=== PATIENT | female | born 1940 | race Caucasian/White ===

== ENCOUNTER 2024-07-13 12:36 | Inpatient (IN) | payer MEDICARE, MEDICAID, SELFPAY ==
[2024-07-13] VITALS (9 sets, daily range): BP systolic 134–153; BP diastolic 51–80; PULSE 68–92; RESP 15–21; TEMP 36.9–37.1; O2SAT 95–100
--- NOTE | 2024-07-13 13:04 | XR_ITS ---
Examination: AP lateral chest 2 views Technique: Upright AP lateral chest 2 views Exam date and time: July 13, 2024 1312 hrs. Indications: Coughing congestion this week with shortness of breath Findings: Moderate CHF Moderate enlargement cardiac contour Prominent vascular congestion with perihilar edema Consider superimposed pneumonia left base Impression: Moderate CHF Consider superimposed pneumonia left base
--- NOTE | 2024-07-13 13:15 | PD.EDRME ---
Rapid Medical Screening Exam [facility] Arrival date/time: 07/13/24 12:36 83-year-old female with no known medical history presents to the emergency room with a chief complaint of shortness of breath, phlegm, cough x 1 week. Patient has been seen and treated for pneumonia but patient states her symptoms have not improved and have progressively gotten worse. I have greeted and performed a focused initial assessment of this patient. A comprehensive ED assessment and evaluation of the patient, analysis of all test results, and completion of the medical decision making process will be conducted by additional ED providers. Chief Complaint: Shortness of Breath/Dyspnea Vital signs: Vital Signs Temperature 98.8 F 07/13/24 12:56 Pulse Rate 80 07/13/24 12:56 Respiratory Rate 18 07/13/24 12:56 Blood Pressure 139/71 H 07/13/24 12:56 Pulse Oximetry (%) 99 07/13/24 12:56 Oxygen Delivery Method Nasal Cannula 07/13/24 12:56 Oxygen Flow Rate 4 07/13/24 12:56 Vital signs reviewed by provider: Yes
[2024-07-13] MEDS: DEXAMETHASONE SOD PHOS INJ 10 MG/ML VIAL PO (13:23)
[2024-07-13] MEDS: ALBUTEROL/IPRATROPIUM (Duoneb) RT SOL 3 ML NEBU INH (13:24)
[2024-07-13 13:30] LABS: Basophils % (Auto) 1 % (0-2.5); Eosinophils # (Auto) 0.1 Thou/mm3 (0.0-0.5); Eosinophils % (Auto) 1 % (0-10); Hematocrit 27.1 % (36.0-46.0); Immature Granulocytes % (Auto) 0 % (0-0); Immature Granulocytes Auto 0.03 Thou/mm3 (0.00-0.00); Lymphocytes % (Auto) 11 % (10-50); Mean Corpuscular HGB Conc 26.2 g/dl (31.0-37.0); Mean Corpuscular Hemoglobin 17.4 pg (25.0-35.0); Mean Corpuscular Volume 66 fL (80-100); Monocytes # (Auto) 0.7 Thou/mm3 (0.0-0.8); Monocytes % (Auto) 8 % (0-12); Neutrophils # (Auto) 6.8 Thou/mm3 (1.8-7.7); Neutrophils % (Auto) 79 % (37-80); Nucleated Red Blood Cell % 0 /100 WBC (0); Platelet Count 274 Thou/mm3 (140-440); RDW Standard Deviation 44.3 fL (36.4-46.3); Red Blood Count 4.09 Miln/mm3 (4.00-5.20); White Blood Count 8.5 Thou/mm3 (3.6-11.0)
[2024-07-13 13:40] LABS: Hemoglobin 7.1 g/dL (12.0-16.0)
[2024-07-13 13:57] LABS: Path Review Blood Smear Sent to Pathologist
[2024-07-13 14:13] LABS: Alanine Aminotransferase < 7 U/L (10-49); Albumin/Globulin Ratio 1.5 (1.2-2.2); Alkaline Phosphatase 81 U/L (46-116); Anion Gap 8 (7-16); Aspartate Amino Transferase 10 U/L (0-34); BUN/Creatinine Ratio 20 Ratio (12-20); Bilirubin,Total 0.3 mg/dL (0.3-1.2); Blood Urea Nitrogen 12 mg/dL (9-23); Calcium 9.4 mg/dL (8.3-10.6); Calcium (Corrected) 9.4 mg/dL (8.5-10.1); Carbon Dioxide 36.5 mMol/L (20.0-31.0); Chloride 94 mMol/L (98-107); Creatinine (Component) 0.6 mg/dL (0.6-1.3); Globulin 2.7 gm/dL (2.3-3.5); Glucose 109 mg/dL (74-106); Osmolality,Calculated 276 (275-295); Potassium 4.1 mMol/L (3.4-5.1); Sodium 138 mMol/L (136-145); Total Protein 6.7 gm/dL (5.7-8.2); eGFR > 60 See Note
--- NOTE | 2024-07-13 18:10 | PC.NURSE ---
PT CAME IN SHE WAS DX PNEUMONIA 07/06/2024 STATES SHE DOES NOT FEEL LIKE SHE IS GETTING BETTER, FEEL FATIGUE AND WEAK. INCREASED SOB SINCE HAVING PNEUMONIA. PT CURRENTLY TAKING LEVOFLOXACIN 500 MG BID FOR 10 DAYS. PT HAS HX COPD, HTN, AFIB. CHF. PT CURRENTLY ON 4L OF O2. PT USES A WHEEL CHAIR AT HOME
--- NOTE | 2024-07-13 18:16 | PD.EDSOB ---
ED SOB =RME/HPI General Chief Complaint: Shortness of Breath/Dyspnea Stated Complaint: PNEUMONIA X 1 WK W/ ABX; SOB, CONFUSION; HX COPD Time Seen by Provider: 07/13/24 18:18 Arrival date/time: 07/13/24 12:36 RME / HPI RME / HPI Narrative: 07/13/24 12:36 83-year-old female with no known medical history presents to the emergency room with a chief complaint of shortness of breath, phlegm, cough x 1 week. Patient has been seen and treated for pneumonia but patient states her symptoms have not improved and have progressively gotten worse. I have greeted and performed a focused initial assessment of this patient. A comprehensive ED assessment and evaluation of the patient, analysis of all test results, and completion of the medical decision making process will be conducted by additional ED providers. DR. BAHENA MAIN ED EVALUATION: 83 year old female history of COPD on 2 L of oxygen as a baseline coming into the emergency department after she is feeling weak after being on 5 days of antibiotics, Levaquin. The patient states she has been more short of breath and so she increased her oxygen to 4 L. The patient states she just feels generally weak and does not want to get out of bed. Her cough is worse. Otherwise there is no fevers. The color of the sputum is white. No lower extremity swelling. Patient does not complain of nausea vomiting or diarrhea. Related Data Home Medications ?Medication ?Instructions ?Recorded ?Confirmed fluticasone propionate 110 2 puff inhalation BID 06/25/18 07/11/23 mcg/actuation HFA aerosol inhaler (Flovent HFA) aspirin 81 mg tablet,delayed 81 mg PO QDAY 09/24/20 07/11/23 release albuterol sulfate 90 mcg/actuation 2 inh inhalation Q6H 09/25/20 07/12/23 breath activated powder inhaler amlodipine 10 mg tablet 10 mg PO QDAY 03/31/21 07/11/23 metoprolol succinate 100 mg 100 mg PO QDAY 03/31/21 07/11/23 tablet,extended release 24 hr omeprazole 20 mg capsule,delayed 20 mg PO QDAY 04/01/21 07/11/23 release ketorolac 0.5 % eye drops 3 drp ophthalmic (eye) BID 07/11/23 07/12/23 fluticasone fur. 200 mcg-umeclid 1 inh inhalation QDAY 07/12/23 07/12/23 62.5 mcg-vilant 25 mcg inhalat.powder (Trelegy Ellipta) Previous Rx's ?Medication ?Instructions ?Recorded ipratropium 0.5 mg-albuterol 3 mg 3 ml inhalation Q6H PRN shortness 02/13/23 (2.5 mg base)/3 mL nebulization of breath or wheezing #90 mL soln albuterol sulfate 1.25 mg/3 mL 1.25 mg (3 mL) inhalation QID PRN 06/06/23 solution for nebulization shortness of breath or wheezing #90 mL furosemide 20 mg tablet (Lasix) 20 mg PO QAM #30 tabs 07/16/23 meclizine 50 mg tablet 50 mg PO QDAY PRN motion sickness 07/25/23 #10 tabs Allergies Allergy/AdvReac Type Severity Reaction Status Date / Time amoxicillin Allergy Severe SOB, RASH, Verified 07/13/24 18:17 REDNESS lisinopril Allergy Severe Swelling Verified 07/13/24 18:17 of Lip/Tongue/Throat Penicillins Allergy Severe Swelling Verified 07/13/24 18:17 of Lip/Tongue/Throat Review of Systems Review of Systems Systems Reviewed: All systems reviewed, normal except as documented Narrative Review of Systems: GEN: No fever, no chills, no weight loss EYES: No discharge, no visual changes, no pain HEENT: No ear pain, no congestion, no sore throat PULM: + shortness of breath, + cough, sputum is white CV: No chest pain, no dyspnea on exertion, no palpitations GI: No nausea, no vomiting, no diarrhea, no pain, no constipation : No frequency, no urgency and no dysuria MUSC/SKEL: No joint pain, no back pain SKIN: No rash PSYCH: No hallucinations, no depression HEME/LYMPH: No easy bleeding or bruising tendencies NEURO: + generalized weakness, no headache Past Medical History Past Medical History NEUROLOGIC: Negative Seizures CARDIAC: Positive Cardiac Disorders, Atrial Fibrillation, Congestive Heart Failure, Valvular Heart Disease and Hypertension RESPIRATORY: Positive Chronic Obstructive Pulmonary Disease (COPD), Asthma, Emphysema and Pneumonia GASTROINTESTINAL: Positive Gastrointestinal Disorders and Gastroesophageal Reflux Disease GENITOURINARY: Negative Renal Disease MUSCULOSKELETAL: Positive Musculoskeletal Disorders, Arthritis, Osteoporosis and Fractures (HIP) ENT: Positive Cataracts ENDOCRINE: Negative Diabetes Mellitus Type 1 or Diabetes Mellitus Type 2 OTHER HISTORY: Positive Falls and Measles; Negative Blood Transfusions, Blood Transfusion Reaction or Anesthesia Reactions Family History FAMILY HISTORY: Negative Family Neurologic Problems, Family Psychiatric Problems, Family Respiratory Disorders, Family Cardiac Disorders, Family Gastrointestinal Problems, Family Cancer, Family Surgery or Family Anesthesia Reaction Surgical History SURGICAL: Positive Hysterectomy and Section Social History SMOKING STATUS: Never smoker SECOND HAND EXPOSURE: Yes SUBSTANCE USE: does not use ED Exam Narrative Physical exam: Patient appears older than stated age. Obese. Looks chronically ill. Not pale. Not diaphoretic. Head Head exam: Present other (Holds her head to the side.) Respiratory Respiratory exam: Present other (Decreased breath sounds bilaterally, positive egophony at the bases.) Abdominal Exam Abdominal exam: Present soft; Absent distention, tenderness, guarding or rebound Rectal Exam Rectal exam: Present heme (-) stool (brown stools, exam in the presence of a nurse iron piler) Neurological Exam Neurological exam: Present other (Moving all extremities) Skin Skin exam: Present pallor Other Other exam information: Rectal exam no hemorrhoids, light brown stool. No bright red blood per rectum. Course Quality Measures none Orders Category Date Time Status COVID-19 Screening Questionnaire NOW Care 07/13/24 21:51 Active [employer] Q4H START 00 Care 07/13/24 18:07 Active Decision to Admit X1 Care 07/13/24 21:51 Completed XR chest 2V Stat Exams 07/13/24 13:04 Completed BNP [B-Type Natriuretic Peptide] Stat Lab 07/13/24 13:21 Completed CBC Stat Lab 07/13/24 13:21 Completed CMP [Comprehensive Metabolic Panel] Stat Lab 07/13/24 13:21 Completed Path Review Blood Smear Stat Lab 07/13/24 13:21 Completed Troponin I Stat Lab 07/13/24 13:21 Completed Albuterol/Ipratr Rt Iva [Duoneb Rt Iva] Med 07/13/24 13:04 Discontinued 3 ml INH X1 ONE Dexamethasone Inj [Decadron Inj] Med 07/13/24 13:04 Discontinued 10 mg PO X1 ONE Reevaluation(s) Reevaluation #1: Patient will be treated with Zosyn. Vital Signs Vital signs: Vital Signs Temperature 98.8 F 07/13/24 12:56 Pulse Rate 80 07/13/24 12:56 Respiratory Rate 18 07/13/24 12:56 Blood Pressure 139/71 H 07/13/24 12:56 Pulse Oximetry (%) 99 07/13/24 12:56 Oxygen Delivery Method Nasal Cannula 07/13/24 12:56 Oxygen Flow Rate 4 07/13/24 12:56 Shortness of Breath / Dyspnea MDM Narrative MDM Narrative:: Lakshmi Rogers am scribing for and in the presence of Dr. Bahena. 83-year-old female with history of COPD Patient data External records reviewed:: [facility] previous records (Reviewed last ED visit dated 09/03/23, discharged with the following: Polypharmacy) Clinical information provided by:: patient Social determinants that could affect healthcare access:: none Patient has the following chronic illnesses:: COPD on 2 L of oxygen as a baseline How is presenting disease/condition affected by chronic disease/condition?: exacerbated by Evaluation data The following diagnostics were reviewed and interpreted by me:: lab results and radiology exam(s) Lab and/or radiology exams considered but not ordered:: none Interpretation Summary: Procedure(s): XR chest 2V Accession Number(s): [id number] cc: Junior Knox; Brandon Nation MD~ Examination: AP lateral chest 2 views Technique: Upright AP lateral chest 2 views Exam date and time: July 13, 2024 1312 hrs. Indications: Coughing congestion this week with shortness of breath Findings: Moderate CHF Moderate enlargement cardiac contour Prominent vascular congestion with perihilar edema Consider superimposed pneumonia left base Impression: Moderate CHF Consider superimposed pneumonia left base Dictated By: Brandon Nation MD Medications / Prescriptions Medications or Prescriptions considered but not ordered:: none Medication administrations:: Medication Administration History Discontinued Medications Albuterol/Ipratropium (Albuterol/Ipratropium (Duoneb) Rt Iva 3 Ml Nebu) 3 ml INH X1 ONE Stop: 07/13/24 13:05 Last Admin: 07/13/24 13:24 Dose: 3 ml Documented By: AA Dexamethasone Sodium Phosphate (Dexamethasone Sod Phos Inj 10 Mg/Ml Vial) 10 mg PO X1 ONE Stop: 07/13/24 13:05 Last Admin: 07/13/24 13:23 Dose: 10 mg Documented By: OA see above Consultations Consultation(s) initiated? (list below): Yes Consultation #1 (Physician, Specialty, Details): Discussed test HPI, PMHx, lab, radiology results and/or management with hospitalist. Will admit for further evaluation and management. Accepts patient for admission. Time: 21:11 Diagnosis Shortness of Breath Differential Diagnosis: community acquired pneumonia and other (symptomatic anemia, COPD exacerbation, undiagnosed CHF, pleural effusion, failed outpatient pneumonia) Most likely diagnosis given after review of the tests above:: Failed outpatient pneumonia Pneumonia Hypoxia Anemia Dyspnea Admission Indicated Admission indicated?: indicated Admission Request Was there a request for admission?: Yes Admission Attestation Admission request attestation: Discussed case with [] from Hospitalist service regarding admission. Discussed patients ED course, exam findings, labs, and radiology results. The Hospitalist [agrees,declines] to accept the patient for admission. Disposition Plan Disposition Plan: Admit Discharge Plan Plan Patient Disposition: Admit Acute Care w/in Hospital Prescriptions/Referrals Prescriptions/Med Rec: No Action fluticasone propionate [Flovent HFA] 110 mcg/actuation Hfa Aerosol Inhaler 2 puff INHALATION BID aspirin 81 mg Tablet,Delayed Release (Dr/Ec) 81 mg PO QDAY albuterol sulfate 90 mcg/actuation Aerosol Powdr Breath Activated 2 inh INHALATION Q6H metoprolol succinate 100 mg tablet extended release 24 hr 100 mg PO QDAY amlodipine 10 mg tablet 10 mg PO QDAY omeprazole 20 mg capsule,delayed release(DR/EC) 20 mg PO QDAY ipratropium-albuterol 0.5 mg-3 mg(2.5 mg base)/3 mL solution for nebulization 3 ml inhalation Q6H PRN (Reason: shortness of breath or wheezing) Qty: 90 0RF albuterol sulfate 1.25 mg/3 mL solution for nebulization 1.25 mg inhalation QID PRN (Reason: shortness of breath or wheezing) Qty: 90 0RF ketorolac 0.5 % drops 3 drp OPHTHALMIC (EYE) BID Trelegy Ellipta 200-62.5-25 mcg Blister With Device 1 inh INHALATION QDAY furosemide [Lasix] 20 mg tablet 20 mg PO QAM Qty: 30 0RF meclizine 50 mg tablet 50 mg PO QDAY PRN (Reason: motion sickness) Qty: 10 0RF Referrals: Naveed Song MD [Primary Care Provider] - In 1 week Problem List Clinical Impression: Pneumonia, Hypoxia, Anemia, Dyspnea Patient/Caregiver Discharge Instructions Print Language: Thai Stand Alone Forms: [employer] Award Info., Patient Portal Info Letter
[2024-07-13 18:55] LABS: B-Type Natriuretic Peptide 188 pg/mL (0-100)
[2024-07-13 19:14] LABS: Troponin I < 0.020 ng/mL (0.0-0.045)
--- NOTE | 2024-07-13 23:29 | PD.RESHP ---
Documentation for date of: 07/13/24 [facility] History of Present Illness History of present illness: In summary: Pleasant 83-year-old female PMHx of COPD with frequent exacerbation, on 2 L home O2, HTN, GERD, seasonal allergies, and unspecified CHF presenting with worsening shortness of breath. Reports 2 weeks of active cough with white sputum, exertional shortness of breath, and generalized fatigue. She was seen by PCP 1 week ago who prescribed ANTIBIOTICS and STEROIDS, which she has completed. Reports worsening shortness of breath over the last few days, currently doubling her home oxygen, and has limited activity secondary to exertional dyspnea. She has a history of CHF for which on FUROSEMIDE 40 mg daily. She doesn't have a 1st pressman on web press, but follows up with her primary, Dr. Song, who is currently prescribing her meds. Uses 3?4 pillows to sleep secondary to orthopnea. Reports on and off lower extremity swelling, likely worsened over the last week. She was diagnosed with COPD 2 years ago, after which she quit smoking. She is on multiple inhalers at home and quires oxygen all day. Denies fever, headaches, fall or trauma, chest pain, potation, GI or urinary symptoms. Reported history of abnormal bleed including dark stool, hematochezia, hematemesis, hemoptysis, or hematuria. ED COURSE: Afebrile, BP 139/71, HR max 92, RR max 20, satting mid 90s on 4 L NC. WBC 8.5, Hgb 7.1, MCV 66, PLT 274. CHEM panel significant for BNP 188; remainder of panel normal including troponin. Lactic acid, LFTs, CR, and anion gap. UA negative for UTI. EKG showed atrial fibrillation, HR 75. CXR showed mild CHF superimposed left base pneumonia. Admitted for AHRF in settings of pneumonia, CHF versus COPD exacerbation. PMHx: COPD, on 2 L home oxygen, CHF, HTN, seasonal allergies. PSHx: Hysterectomy, . MEDS: METOPROLOL 100 mg daily, AMLODIPINE 10 mg daily, ASPIRIN 81 mg daily, FLUTICASONE inhaler, TRELEGY inhaler, VENTOLIN inhaler, FUROSEMIDE 40 mg daily, DEXLANSOPRAZOLE 60 mg daily, CLOTRIMAZOLE 1 oz PRN, MECLIZINE 25 mg PRN, IBUPROFEN 6 oh milligram PRN, ALLERGIES: Previously fainted following AMOXICILLIN/NEXIUM/PENICILLIN. FHx: Not relevant. SH: Previous smoker, denies alcohol or tobacco use. Exam Vital Signs Temp Pulse Resp BP Pulse Ox O2 Del Method O2 Flow Rate 98.4 F 81 20 144/62 H 98 Nasal Cannula 4 07/13/24 18:22 07/13/24 23:00 07/13/24 23:00 07/13/24 23:00 07/13/24 23:00 07/13/24 21:07 07/13/24 21:07 Narrative Exam GENERAL Frail, ill-appearing elderly female, on 4 L NC, satting well. HEENT NCAT.?HANNY. Oral mucosa is moist. Patent Nares NECK Supple, nontender, no thyromegaly, no meningismus, no JVD, no step offs CHEST RRR, no m/g/r Bilateral rales present, no wheezing or rhonchi. Severe thoracic/cervical kyphosis and scoliosis. Atraumatic, nontender, no crepitus, symmetrical expansion. ABDOMEN Soft, flat, nontender. No guarding/rebound tenderness/masses. Bowel sounds presents EXTREMITIES Bilateral 2+ lower extremity pitting edema. LE significantly larger than RE, no popliteal tenderness bilaterally. Pulses intact bilaterally SKIN Warm and dry, no jaundice/rashes. NEUROMUSCULAR No lumbar or midline, no CVA, no paraspinal muscle spasm or tenderness. Moves all 4 extremities well, with full ROM and good CSM. SORENSEN x4, CN II-XII grossly intact. No focal neurologic deficits. PSYCHIATRY Normal mood and affect, cooperative, no SI or HI or hallucinations. Results: Labs 07/13/24 13:21 07/13/24 13:21 Labs: Short CBC 07/13/24 Range/Units 13:21 WBC 8.5 (3.6-11.0) Thou/mm3 Hgb 7.1 L (12.0-16.0) g/dL Hct 27.1 L (36.0-46.0) % Plt Count 274 (140-440) Thou/mm3 BMP 07/13/24 13:21 Sodium 138 Potassium 4.1 Chloride 94 L Carbon Dioxide 36.5 H BUN 12 Creatinine 0.6 Glucose 109 H Calcium 9.4 Cardiac Enzymes 07/13/24 Range/Units 13:21 Troponin I < 0.020 (0.0-0.045) ng/mL Liver Function 07/13/24 Range/Units 13:21 Total Bilirubin 0.3 (0.3-1.2) mg/dL AST 10 (0-34) U/L ALT < 7 L (10-49) U/L Alkaline Phosphatase 81 (46-116) U/L Albumin 4.0 (3.4-4.8) gm/dL Quality Measures Quality Measures none Advance care planning discussed with:: patient Medications Home Medications and Allergies Home Medications ?Medication ?Instructions ?Recorded ?Confirmed ?Type fluticasone propionate 110 2 puff inhalation BID 06/25/18 07/11/23 History mcg/actuation HFA aerosol inhaler (Flovent HFA) aspirin 81 mg tablet,delayed 81 mg PO QDAY 09/24/20 07/11/23 History release albuterol sulfate 90 mcg/actuation 2 inh inhalation Q6H 09/25/20 07/12/23 History breath activated powder inhaler amlodipine 10 mg tablet 10 mg PO QDAY 03/31/21 07/11/23 History metoprolol succinate 100 mg 100 mg PO QDAY 03/31/21 07/11/23 History tablet,extended release 24 hr omeprazole 20 mg capsule,delayed 20 mg PO QDAY 04/01/21 07/11/23 History release ketorolac 0.5 % eye drops 3 drp ophthalmic (eye) BID 07/11/23 07/12/23 History fluticasone fur. 200 mcg-umeclid 1 inh inhalation QDAY 07/12/23 07/12/23 History 62.5 mcg-vilant 25 mcg inhalat.powder (Trelegy Ellipta) Allergies Allergy/AdvReac Type Severity Reaction Status Date / Time amoxicillin Allergy Severe SOB, RASH, Verified 07/13/24 18:17 REDNESS lisinopril Allergy Severe Swelling Verified 07/13/24 18:17 of Lip/Tongue/Throat Penicillins Allergy Severe Swelling Verified 07/13/24 18:17 of Lip/Tongue/Throat Visit Medications Acetaminophen (Acetaminophen 325 Mg Tablet) 650 mg PO Q6H PRN PRN Reason: PAIN SCALE 1-3 (mild Stop: 08/12/24 23:17 Acetaminophen (Acetaminophen 325 Mg Tablet) 650 mg PO Q6H PRN PRN Reason: Fever >100.4 Stop: 08/12/24 23:17 Hydrocodone Bitart/Acetaminophen (Hydrocodone/Apap 10/325 Tab) 1 tab PO Q4HR PRN PRN Reason: PAIN SCALE 7-10 (Severe Stop: 07/18/24 23:17 Albuterol/Ipratropium (Albuterol/Ipratropium (Duoneb) Rt Iva 3 Ml Nebu) 3 ml INH Q6HRRT [facility] Stop: 08/13/24 00:59 Enoxaparin Sodium (Enoxaparin Sod Inj 40 Mg/0.4 Ml Syringe) 40 mg SC QDAY [facility] Stop: 07/28/24 08:59 Ceftriaxone Sodium 1,000 mg/ (Sodium Chloride) 50 mls @ 100 mls/hr IV QDAY [facility] Stop: 07/21/24 08:59 Azithromycin 250 mg/ Sodium (Chloride) 250 mls @ 250 mls/hr IV QDAY [facility] Stop: 07/21/24 08:59 Ondansetron HCl (Ondansetron Inj 2 Mg/Ml Inj 2 Ml) 4 mg IV Q6H PRN; Protocol PRN Reason: NAUSEA OR VOMITING Stop: 08/12/24 23:17 Oxycodone/Acetaminophen (Oxycodone/Apap 5/325 Tablet) 1 tab PO Q6H PRN PRN Reason: PAIN SCALE 4-6 (Moderate Stop: 07/18/24 23:17 Pantoprazole Sodium (Pantoprazole Inj 40 Mg Vial) 40 mg IVP QDAY [facility] Stop: 08/13/24 08:59 Discontinued Medications Albuterol/Ipratropium (Albuterol/Ipratropium (Duoneb) Rt Iva 3 Ml Nebu) 3 ml INH X1 ONE Stop: 07/13/24 13:05 Last Admin: 07/13/24 13:24 Dose: 3 ml Dexamethasone Sodium Phosphate (Dexamethasone Sod Phos Inj 10 Mg/Ml Vial) 10 mg PO X1 ONE Stop: 07/13/24 13:05 Last Admin: 07/13/24 13:23 Dose: 10 mg Sodium Chloride (Sodium Chloride Rt 10% 15 Ml Nebu) 5 ml INH X1 ONE Stop: 07/13/24 23:20 Assessment & Plan Plan In summary: Pleasant 83-year-old female PMHx of COPD with frequent exacerbation, on 2 L home O2, HTN, GERD, seasonal allergies, and unspecified CHF presenting with worsening shortness of breath. Admitted for AHRF in settings of pneumonia versus COPD/CHF exacerbation. AHRF [facility] pneumonia CHF vs COPD exacerbation Diagnosed with pneumonia last week, failed a course of LEVOFLOXACIN outpatient. Has persistent productive cough with white sputum, worsening SOB, and exertional dyspnea over the last week, despite doubling her oxygen dose. Reports ongoing orthopnea, worsening lower extremity swelling. BNP 188. Nol echocardiogram on file. History of COPD and CHF, on 2 L home baseline oxygen and LASIX 40 daily. CXR showed mild CHF superimposed left base pneumonia. Symptoms most likely related to pneumonia, CHF exacerbation, and less likely COPD exacerbation given the lack of wheezing on exam. However will treat for all the above. Currently afebrile, no leukocytosis. Negative influenza A/B and bedside COVID. Currently on 4 L NC, satting appropriately. ? Continue AZITHROMYCIN and CEFTRIAXONE (07/14 to present) ? Continue DuoNebs q.6h. ? Continue LASIX 40 mg BID ? Continue home METOPROLOL 100 mg daily ? Continue home ASPIRIN 81 mg daily ? Strict RICK's, fluid restriction ? Pending sputum and blood culture, MRSA ? Pending echocardiogram ? Pending morning VBG ? Consider adding STEROIDS, if UGI bleed ruled out HTN A-fib, rate controlled Likely paroxysmal. No history of A-fib. BP 144/62, EKG showed atrial fibrillation, HR 75. Troponin negative. Denies chest pain. [id number] 5, CVA risk 7-10% annually. HAS-BLED 3-4 (pending INR), 6-9% bleeding risk. ? Continue home AMLODIPINE 10 mg daily ? Consider anticoagulation once anemia resolved Iron deficiency anemia Admission Hgb 7.1 (baseline around 10), MCV 66, HCT 27.1, platelets normal. Denies signs or symptoms of bleed including GI bleed. No history of anemia. Never had colonoscopy or endoscopy done. ? Ordered 1 unit PRBC ? Follow-up posttransfusion H&H ? Maintain Hgb greater than 8 ? Pending FOBT ? Pending iron panel Bilateral lower extremity edema, asymmetrical Exam she had 2+ pitting edema bilateral extremity, with significantly more swelling on the left extremity compared to right. ? Pending lower extremity venous ultrasound GERD ? Continue PROTONIX 40 mg daily Seasonal allergies ? Continue FLUTICASONE 1 puff BID Motion sickness Has occasional dizziness, previous diagnosed with motion sickness. ? Continue home including 50 mg daily PRN Others: Right eye inflammation (unspecified) ? Continue home KETOROLAC OD 1 drop BID Health maintenance Diet: Cardiac GI prophylaxis: PROTONIX DVT prophylaxis: SCDs Antibiotics: CEFTRIAXONE, AZITHROMYCIN CODE STATUS: Limited code, no intubation. Disposition: Admitted for AHRF. Patient case was discussed with attending, Sridevi Sheppard MD. Maria Elena Figueroa DO PGYI Attending Provider Attestation/Addendum I attest that I was physically present for the evaluation, physical examination, lab and imaging review of the patient with the residents. I discussed the case with the residents and agree with the findings and plans of care as documented above. Patient is an 83 years old female with past medical history of COPD on 2 L nasal cannula, hypertension, GERD, CHF who presented to the ED with complaint of worsening shortness of breath. Patient has been having cough with increased sputum and shortness of breath for couple of weeks. She went to her PCP about a week ago and was prescribed antibiotics and steroids. Despite this treatment she has been having worsening shortness of breath, has increased her home oxygen to 4 L/min and decided to visit the ED. In the ED, she is saturating around 96 on 4 L nasal cannula. Rest of the vitals are within normal limits. Noted to have hemoglobin of 7.1 with MCV 66 but patient denied any bleeding, black tarry stool, hematemesis, hemoptysis, bleeding per rectum. She states that she never had any colonoscopy before. EKG was obtained in the ED, shows A-fib with heart rate of 75. Chest x-ray shows mild CHF, superimposed left base pneumonia. We will admit the patient for acute on chronic hypoxic respiratory failure secondary to pneumonia versus CHF exacerbation. We will start her on IV Rocephin and azithromycin, supplemental oxygen, DuoNebs, Lasix. Her [id number] score is 5 but pending workup for low hemoglobin we will hold off on anticoagulation. Ordered 1 unit of PRBC, we will obtain FOBT, iron panel, and closely monitor hemoglobin level. We will consider GI consult if FOBT is positive. Patient also noted to have more swelling on the left leg compared to right, we will obtain Doppler ultrasound of lower extremities to rule out DVT. Heladio Sheppard MD
[2024-07-13] MEDS: FUROSEMIDE INJ 10 MG/ML 4ML VIAL 40 MG IVP (23:39)
[2024-07-14] VITALS (20 sets, daily range): BP systolic 115–160; BP diastolic 52–83; PULSE 59–114; RESP 15–21; TEMP 36.1–36.6; O2SAT 93–100; BMI 32.4
[2024-07-14] MEDS: ALBUTEROL/IPRATROPIUM (Duoneb) RT SOL 3 ML NEBU INH ×4 (00:18→18:26)
--- NOTE | 2024-07-14 00:36 | PC.RT ---
sputum collected and sent to lab at this time.
[2024-07-14] MEDS: ACETAMINOPHEN 325 MG TABLET 650 MG PO (00:41)
[2024-07-14] MEDS: DiphenhydrAMINE 25 MG CAPSULE PO (00:42)
[2024-07-14] MEDS: AZITHROMYCIN INJ 250 MG in SODIUM CHLORIDE 0.9% 250 ML 250 ML IV ×2 (00:43→22:30)
--- NOTE | 2024-07-14 00:43 | XR_ITS ---
Examination: Venous duplex lower extremity sonogram, bilateral. Date and time of exam: July 14, 2024 0756 hrs. Indications: Bilateral lower leg swelling and pain beginning one week ago Technique: Multiple sonographic images of the deep venous system have been obtained. B-mode/2-D grayscale imaging of vascular structures and Doppler spectral analysis (waveforms) and color performed Both legs are examined. Findings: Deep venous systems do not demonstrate abnormal echogenicity. All visualized deep veins exhibit compressibility. All visualized deep veins exhibit augmentation. Impression: Negative for deep vein thrombosis
[2024-07-14] MEDS: cefTRIAXone 1,000 MG in SODIUM CHLORIDE 0.9% (Popper) 50 ML 100 MG IV ×2 (02:22→21:24)
[2024-07-14] MEDS: FUROSEMIDE INJ 10 MG/ML 4ML VIAL 40 MG IVP ×2 (05:23→17:55)
[2024-07-14] MEDS: METOPROLOL SUCCINATE XL 25 MG TABCR 100 MG PO (09:00)
[2024-07-14] MEDS: ASPIRIN EC 81 MG TABEC PO (09:01)
[2024-07-14] MEDS: PANTOPRAZOLE INJ 40 MG VIAL IVP (09:01)
[2024-07-14] MEDS: amLODIPine BESYLATE 5 MG TABLET 10 MG PO (09:01)
[2024-07-14 09:23] LABS: Base Excess, Venous 13 (-3-3); O2 Saturation, Venous 64 % (96-97); PCO2, Venous 58 mmHg (36-56); PO2, Venous 33 mmHg (15-58); pH, Venous 7.44 (7.33-7.66)
[2024-07-14 09:27] LABS: Basophils % (Auto) 0 % (0-2.5); Eosinophils % (Auto) 0 % (0-10); Hematocrit 31.2 % (36.0-46.0); Immature Granulocytes % (Auto) 1 % (0-0); Immature Granulocytes Auto 0.04 Thou/mm3 (0.00-0.00); Lymphocytes # (Auto) 0.6 Thou/mm3 (1.0-4.8); Lymphocytes % (Auto) 11 % (10-50); Mean Corpuscular HGB Conc 27.2 g/dl (31.0-37.0); Mean Corpuscular Hemoglobin 18.8 pg (25.0-35.0); Mean Corpuscular Volume 69 fL (80-100); Monocytes # (Auto) 0.4 Thou/mm3 (0.0-0.8); Monocytes % (Auto) 6 % (0-12); Neutrophils # (Auto) 4.5 Thou/mm3 (1.8-7.7); Neutrophils % (Auto) 82 % (37-80); Nucleated Red Blood Cell % 0 /100 WBC (0); Platelet Count 283 Thou/mm3 (140-440); RDW Standard Deviation 48.7 fL (36.4-46.3); Red Blood Count 4.52 Miln/mm3 (4.00-5.20); White Blood Count 5.4 Thou/mm3 (3.6-11.0)
[2024-07-14] MEDS: FLUTICASONE NAS SPRAY 0.05% 16 GM BTL 1 SPRAY NASAL (09:37)
[2024-07-14] MEDS: KETOROLAC 0.5% 1 DROP RIGHT EYE ×2 (09:40→21:29)
[2024-07-14 09:52] LABS: Partial Thromboplastin Time 24.5 Seconds (22.0-36.0); Prothrombin Time 11.4 Seconds (9.0-12.2)
[2024-07-14 09:54] LABS: Iron 56 mcg/dL (50-170); Percent Iron Saturation 12 % (20-55); Total Iron Binding Capacity 433 mcg/dL (250-425); Unsaturated Iron Binding 377 (225-295)
[2024-07-14 10:01] LABS: Alanine Aminotransferase < 7 U/L (10-49); Albumin, Serum 4.2 gm/dL (3.4-4.8); Albumin/Globulin Ratio 1.4 (1.2-2.2); Alkaline Phosphatase 77 U/L (46-116); Anion Gap 6 (7-16); Aspartate Amino Transferase 12 U/L (0-34); BUN/Creatinine Ratio 32 Ratio (12-20); Bilirubin,Total 0.5 mg/dL (0.3-1.2); Blood Urea Nitrogen 16 mg/dL (9-23); Calcium 9.4 mg/dL (8.3-10.6); Calcium (Corrected) 9.4 mg/dL (8.5-10.1); Carbon Dioxide 35.8 mMol/L (20.0-31.0); Chloride 98 mMol/L (98-107); Creatinine (Component) 0.5 mg/dL (0.6-1.3); Estimated Creatinine Clearance 88.5 mL/min (>60); Globulin 2.9 gm/dL (2.3-3.5); Glucose 165 mg/dL (74-106); Magnesium 1.9 mg/dL (1.6-2.6); Osmolality,Calculated 284 (275-295); Phosphorous 3.9 mg/dL (2.4-5.1); Potassium 3.8 mMol/L (3.4-5.1); Sodium 140 mMol/L (136-145); Total Protein 7.1 gm/dL (5.7-8.2); eGFR > 60 See Note
[2024-07-14 10:18] LABS: Hemoglobin 8.5 g/dL (12.0-16.0)
--- NOTE | 2024-07-14 10:28 | PD.RESPRO ---
Documentation for date of: 07/14/24 Subjective Subjective Interval history: 07/14/2024: Patient is an overnight admission for shortness of breath likely secondary to CHF exacerbation but also possible underlying left base pneumonia as seen on chest x-ray. Patient continues to be treated with IV antibiotics, IV Lasix and an echo has been ordered. Venous duplex ultrasound which was ordered by the night team is negative for any DVT at this time. Patient is being transfused 1 unit of PRBC; moreover, will follow-up with hemoglobin hematocrit. At this time there is no real source of bleeding but we will continue to monitor closely. Exam Vital Signs Temp Pulse Resp BP Pulse Ox O2 Del Method O2 Flow Rate 97.0 F 80 18 160/74 H 97 Nasal Cannula 2 07/14/24 08:00 07/14/24 09:01 07/14/24 08:00 07/14/24 09:01 07/14/24 08:00 07/14/24 08:00 07/14/24 08:00 Narrative Exam Physical Exam: GENERAL: Awake, answering questions appropriately, appears stated age, obese, on 2 L nasal cannula HEENT: NC/AT. Moist mucosa. PERRLA/EOMI. CARDIO: Heart RRR, no obvious murmurs, no JVD. PULM: No coughing or visible SOB. Crackles and sporadic wheezing noted on lower lung olivares GI: Abdomen soft, NT/ND, +BS. SKIN/MSK/EXT: Non-pitting edema noted on bilateral lower extremities. No wounds/discoloration/rashes/amputations noted. +Pedal pulses present B/L. NEURO: Oriented x3, no focal neurologic deficits, Moves extremities x4. Objective Labs 07/14/24 05:00 07/14/24 09:10 Labs: Laboratory Results - last 24 hr 07/13/24 07/14/24 07/14/24 13:21 00:50 05:00 WBC 8.5 5.4 RBC 4.09 4.52 Hgb 7.1 L 8.5 L Hct 27.1 L 31.2 L MCV 66 L 69 L MCH 17.4 L 18.8 L MCHC 26.2 L 27.2 L RDW Std Deviation 44.3 48.7 H Plt Count 274 283 Neut % (Auto) 79 82 H Lymph % (Auto) 11 11 [place] % (Auto) 8 6 Eos % (Auto) 1 0 Baso % (Auto) 1 0 Neut # (Auto) 6.8 4.5 Lymph # (Auto) 1.0 0.6 L [place] # (Auto) 0.7 0.4 Eos # (Auto) 0.1 0.0 Baso # (Auto) 0.0 0.0 Immature Gran # (Auto) 0.03 H 0.04 H Absolute Nucleated RBC 0.00 0.00 Immature Gran % 0 1 H Nucleated RBC % 0 0 Smear Path Review Sent to Pathologist PT INR APTT VBG pH VBG pCO2 VBG pO2 VBG O2 Sat (Tamela) VBG Base Excess Sodium 138 Potassium 4.1 Chloride 94 L Carbon Dioxide 36.5 H Anion Gap 8 BUN 12 Creatinine 0.6 Estim Creat Clear Calc Not Performed. eGFR > 60 BUN/Creatinine Ratio 20 Glucose 109 H Calculated Osmolality 276 Calcium 9.4 Corrected Calcium 9.4 Phosphorus Magnesium Iron TIBC Iron Saturation Unsat Iron Binding Total Bilirubin 0.3 AST 10 ALT < 7 L Alkaline Phosphatase 81 Troponin I < 0.020 B-Natriuretic Peptide 188 H Total Protein 6.7 Albumin 4.0 Globulin 2.7 Albumin/Globulin Ratio 1.5 Blood Type A Positive Antibody Screen NEGATIVE Crossmatch See Detail Blood Bank Wristband ID Yes 07/14/24 09:10 WBC RBC Hgb Hct MCV MCH MCHC RDW Std Deviation Plt Count Neut % (Auto) Lymph % (Auto) [place] % (Auto) Eos % (Auto) Baso % (Auto) Neut # (Auto) Lymph # (Auto) [place] # (Auto) Eos # (Auto) Baso # (Auto) Immature Gran # (Auto) Absolute Nucleated RBC Immature Gran % Nucleated RBC % Smear Path Review PT 11.4 INR 1.0 APTT 24.5 VBG pH 7.44 VBG pCO2 58 H VBG pO2 33 VBG O2 Sat (Tamela) 64 L VBG Base Excess 13 H Sodium 140 Potassium 3.8 Chloride 98 Carbon Dioxide 35.8 H Anion Gap 6 L BUN 16 Creatinine 0.5 L Estim Creat Clear Calc 88.5 eGFR > 60 BUN/Creatinine Ratio 32 H Glucose 165 H D Calculated Osmolality 284 Calcium 9.4 Corrected Calcium 9.4 Phosphorus 3.9 Magnesium 1.9 Iron 56 TIBC 433 H Iron Saturation 12 L Unsat Iron Binding 377 H Total Bilirubin 0.5 AST 12 ALT < 7 L Alkaline Phosphatase 77 Troponin I B-Natriuretic Peptide Total Protein 7.1 Albumin 4.2 Globulin 2.9 Albumin/Globulin Ratio 1.4 Blood Type Antibody Screen Crossmatch Blood Bank Wristband ID ABG Interpretation ABG results: 07/14/24 09:10 VBG pH 7.44 VBG pCO2 58 H VBG pO2 33 VBG Base Excess 13 H Quality Measures Quality Measures none Advance care planning discussed with:: patient and child Assessment & Plan Assessment Current Active Medications: Generic Name Dose Route Start Last Admin Trade Name Freq PRN Reason Stop Dose Admin Acetaminophen 650 mg 07/13/24 23:18 Acetaminophen 325 Mg Tablet PO 08/12/24 23:17 Q6H PRN PAIN SCALE 1-3 (mild Acetaminophen 650 mg 07/13/24 23:18 Acetaminophen 325 Mg Tablet PO 08/12/24 23:17 Q6H PRN Fever >100.4 Hydrocodone Bitart/Acetaminophen 1 tab 07/13/24 23:18 Hydrocodone/Apap 10/325 Tab PO 07/18/24 23:17 Q4HR PRN PAIN SCALE 7-10 (Severe Albuterol/Ipratropium 3 ml 07/14/24 01:00 07/14/24 07:25 Albuterol/Ipratropium (Duoneb) Rt Iva 3 Ml Nebu INH 08/13/24 00:59 3 ml Q6HRRT TRISTAN Administration Amlodipine Besylate 10 mg 07/14/24 09:00 07/14/24 09:01 Amlodipine Besylate 5 Mg Tablet PO 08/13/24 08:59 10 mg QDAY TRISTAN Administration Aspirin 81 mg 07/14/24 09:00 07/14/24 09:01 Aspirin Ec 81 Mg Tabec PO 08/13/24 08:59 81 mg QDAY TRISTAN Administration Fluticasone Propionate 1 spray 07/14/24 09:00 07/14/24 09:37 Fluticasone Ulcien [place] 0.05% 16 Gm Btl NASAL 08/13/24 08:59 1 spray BID TRISTAN Administration Furosemide 40 mg 07/13/24 23:30 07/14/24 05:23 Furosemide Inj 10 Mg/Ml 4ml Vial IVP 08/12/24 23:29 40 mg BIDD TRISTAN Administration Ceftriaxone Sodium 1,000 mg/ 50 mls @ 100 mls/hr 07/14/24 02:00 07/14/24 02:22 Sodium Chloride IV 07/21/24 01:59 100 mls/hr QDAY@2100 TRISTAN Administration Azithromycin 250 mg/ Sodium 250 mls @ 250 mls/hr 07/14/24 21:00 Chloride IV 07/21/24 20:59 QDAY@2100 TRISTAN Ketorolac Tromethamine 1 drop 07/14/24 09:00 07/14/24 09:40 Ketorolac Op Iva 0.5% 5 Ml Btl RIGHT EYE 08/13/24 08:59 1 drop BID TRISTAN Administration Meclizine HCl 50 mg 07/13/24 23:27 Meclizine Hcl 25 Mg Tablet PO 08/13/24 08:59 QDAY PRN dizzienss Metoprolol Succinate 100 mg 07/14/24 09:00 07/14/24 09:00 Metoprolol Succinate Xl 25 Mg Tabcr PO 08/13/24 08:59 100 mg QDAY TRISTAN Administration Ondansetron HCl 4 mg 07/13/24 23:18 Ondansetron Inj 2 Mg/Ml Inj 2 Ml IV 08/12/24 23:17 Q6H PRN NAUSEA OR VOMITING Protocol Oxycodone/Acetaminophen 1 tab 07/13/24 23:18 Oxycodone/Apap 5/325 Tablet PO 07/18/24 23:17 Q6H PRN PAIN SCALE 4-6 (Moderate Pantoprazole Sodium 40 mg 07/14/24 09:00 07/14/24 09:01 Pantoprazole Inj 40 Mg Vial IVP 08/13/24 08:59 40 mg QDAY TRISTAN Administration Plan 83-year-old female PMHx of COPD with frequent exacerbation, on 2 L home O2, HTN, GERD, seasonal allergies, and unspecified CHF presenting with worsening shortness of breath. Admitted for AHRF in settings of pneumonia versus COPD/CHF exacerbation. #Acute hypoxic respiratory failure #Congestive heart failure exacerbation #Left base pneumonia #COPD on home oxygen History of COPD and CHF, on 2 L home baseline oxygen and LASIX 40 da Patient was diagnosed with pneumonia last week, failed a course of Levaquin outpatient. Has persistent productive cough with white sputum, worsening SOB, and exertional dyspnea over the last week, despite doubling her oxygen dose. Also, reports ongoing orthopnea, worsening lower extremity swelling. BNP 188. No echocardiogram on file. CXR showed mild CHF superimposed left base pneumonia. Currently afebrile, no leukocytosis. Negative influenza A/B and bedside COVID Venous Doppler ultrasound negative for any DVT VBG showed pH 7.44, pCO2 58 and pO2 33 Currently on 2 L NC, satting appropriately. Plan: Started patient on fluticasone 100 mcg 2 puffs twice daily Continue IV azithromycin and ceftriaxone Continue DuoNebs q.6h. Continue IV diuresis with Lasix 40 mg twice daily Continue home metoprolol succinate 100 mg and aspirin 81 mg daily Strict RICK's, fluid restriction, daily weight Pending sputum and blood culture, MRSA Pending echocardiogram #Hypertension #Atrial fibrillation, rate controlled Likely paroxysmal. No history of A-fib. BP 144/62, EKG showed atrial fibrillation, HR 75. Troponin negative. Denies chest pain. [id number] 5, CVA risk 7-10% annually. HAS-BLED 3-4 (pending INR), 6-9% bleeding risk. Plan: Continue home amlodipine 10 mg daily Will consider risk/benefits of starting DOAC and have shared decision making with patient #Iron deficiency anemia Admission Hgb 7.1 (baseline around 10), MCV 66, HCT 27.1, platelets normal. Denies signs or symptoms of bleed including GI bleed. No history of anemia. Never had colonoscopy or endoscopy done. Patient was transfused 1 unit PRBC Iron panel shows: Iron 56, TIBC 433, iron saturation 12% and ferritin 11 Plan: Follow-up posttransfusion H&H Consider iron supplementation when discharging the patient Follow-up with PCP #GERD Patient is on home dexlansoprazole 60 mg p.o. daily Plan: Will monitor for any symptoms at this time we will hold off on PPI treatment #Motion sickness Has occasional dizziness, previous diagnosed with motion sickness. Plan: Continue home including 50 mg daily PRN #Right eye inflammation (unspecified) Plan: Continue home KETOROLAC OD 1 drop BID Hospital Management: Diet: Cardiac Lines: PIV Bowel: Senna GI prophylaxis: Not needed DVT prophylaxis: SCDs Disposition: Acute hypoxic respiratory failure secondary to CHF exacerbation pneumonia treatment CODE STATUS: Limited code, no intubation. Patient seen and examined with attending Dr. Hays and senior resident Dr. Adriane Montanez, PGY-1 Attending Provider Attestation/Addendum I reviewed labs, imaging, EKG, home medications and prior available records. Face to face evaluation was performed by me. I have personally examined the patient and discussed assessment and plan with the IM team. I reviewed the resident note and agree with the plan with exceptions as below. Dyspnea on exertion Chronic hypoxic respiratory failure CHF exacerbation HFpEF EF 65 to 70% in 2023 COPD without exacerbation Left lower lobe pneumonia Continue ceftriaxone/azithromycin Continue oxygen. She is on 2 L which is her home oxygen dose Continue IV Lasix. Monitor I's and O's Continue DuoNebs Follow-up echocardiogram Follow-up ultrasound of the lower extremities without DVT: Negative for DVT
--- NOTE | 2024-07-14 11:32 | PC.SS ---
Addendum entered by ANNAMARIE Hunter 07/14/24 11:35: Patient reports having home O2. 4L is baseline. Original Note: Initial assessment: this is 83 year old female admitted for SOB. Patient appeared alert/oriented. Patient lives at home alone. Home address confirmed. Patient assigned daughterCindy as her emergency contact. Patient reports being wheelchair bound. WC at bed side. Patient PCP is Dr.Suneel Brennan. Patient pharmacy is [facility]. Patient wants to return home upon discharge, has transportation access. No needs identified. Community resources provided. D/c plan: Home Next of kin: DaughterCindy
[2024-07-14] MEDS: SENNA TABLET 1 TAB PO (14:30)
--- NOTE | 2024-07-14 14:33 | PC.SS ---
Rounding note; pending echo and IV abx.
--- NOTE | 2024-07-14 19:37 | PC.NURSE ---
mrsa nasal swab specimen sent to lab.
--- NOTE | 2024-07-14 19:38 | PC.NURSE ---
complain of dryness and scab in nares- Applied humidifier to O2 inh.
--- NOTE | 2024-07-14 19:43 | PC.NURSE ---
flovent inhaler not available - called pharmacist.
[2024-07-14] MEDS: FLUTICASONE 110 MCG 2 PUFF INH (21:55)
--- NOTE | 2024-07-14 23:19 | ECHO_ITS ---
Transthoracic Echo Report Ht (in): 63 Wt (lb): 183 Exam Location: Echo Lab Status: Inpatient [place] Laborer: JAY Diamond^^^^ Indications: Procedure Performed: BP: 138 / 78 HR: 84 Technical Quality: Technically difficult study MEASUREMENTS (Male / Female) Normal Values 2D ECHO LV Diastolic Diameter PLAX 4.2 cm 4.2 - 5.9 / 3.9 - 5.3 cm LV Systolic Diameter PLAX 2.8 cm IVS Diastolic Thickness 1.0 cm 0.6 - 1.0 / 0.6 - 0.9 cm LVPW Diastolic Thickness 1.2 cm 0.6 - 1.0 / 0.6 - 0.9 cm LV Relative Wall Thickness 0.5 LVOT Diameter 1.4 cm Aortic Root Diameter 3.0 cm LA Systolic Diameter LX 4.6 cm 3.0 - 4.0 / 2.7 - 3.8 cm LV Ejection Fraction MOD BP 72.2 % >= 55 % LV Cardiac Index MOD BP 2786.4 cm?/min?m? LV Ejection Fraction MOD 4C 75.5 % LV Cardiac Index MOD 4C 3603.4 cm?/min?m? LV Ejection Fraction 4C AL 76.2 % LV Cardiac Index 4C AL 3784.6 cm?/min?m? LV Ejection Fraction MOD 2C 69.3 % LV Cardiac Index MOD 2C 2089.8 cm?/min?m? LV Ejection Fraction 2C AL 71.0 % LV Cardiac Index 2C AL 2190.9 cm?/min?m? LA Volume Index 40.3 cm?/m? 16 - 28 cm?/m? DOPPLER AV Peak Velocity 191.0 cm/s AV Peak Gradient 14.6 mmHg AV Mean Gradient 8.5 mmHg AV Velocity Time Integral 42.0 cm LVOT Peak Velocity 117.0 cm/s LVOT Peak Gradient 5.5 mmHg LVOT Velocity Time Integral 28.9 cm LVOT Cardiac Index 1913.0 cm?/min?m? AV Area Cont Eq vti 1.1 cm? AV Area Cont Eq pk 0.9 cm? MV Area PHT 2.6 cm? MR Peak Velocity 338.0 cm/s MR Peak Gradient 45.7 mmHg Mitral E Point Velocity 106.0 cm/s Mitral A Point Velocity 80.8 cm/s Mitral E to A Ratio 1.3 LV E' Lateral Velocity 9.0 cm/s Mitral E to LV E' Lateral Ratio 11.7 LV E' Septal Velocity 7.7 cm/s Mitral E to LV E' Septal Ratio 13.7 TR Peak Velocity 313.5 cm/s TR Peak Gradient 39.3 mmHg PV Peak Velocity 102.0 cm/s PV Peak Gradient 4.2 mmHg RVOT Peak Velocity 62.8 cm/s FINDINGS Left Ventricle Normal left ventricular size, wall thickness, systolic function with no obvious regional wall motion abnormalities. There is grade II diastolic dysfunction of the left ventricle (pseudonormal filling pattern). The left ventricular ejection fraction is normal, estimated at 60-65%. Right Ventricle The right ventricle is normal in size and systolic function. The estimated right ventricular systolic pressure, 40 mmHg. Left Atrium Mildly increased left atrial volume 40.3 mL/m?. Right Atrium The right atrial cavity size is mildly increased. Atrial Septum The interatrial septum appears normal with no evidence of a shunt. Aorta The aorta is normal by two-dimensional, color flow and Doppler interrogation. Mitral Valve Feou-mg-ljvspxuv mitral regurgitation. Mild mitral annular calcification. Aortic Valve Mild aortic valve stenosis, mean gradient 8.5 mmHg, DAVID 1.1 cm?. Tricuspid Valve There is mild tricuspid valve regurgitation. Pulmonic Valve Trivial pulmonic valve regurgitation. Vessels The pulmonary artery appears normal. The inferior vena cava pulmonary and hepatic veins appear normal. Pericardium The pericardium is normal by two-dimensional imaging. There is no significant pericardial effusion. CONCLUSIONS indication: hx CHF LV appears normal with EF of 60-65%. Diastolic Dysfunction I is present. RV appears normal with RVSP of 40 mmHg. LA is mildly dilated. RA is mildly dilated. MV has mild MR & MAC. AOV is mildly stenotic. TV has mild TR. Bruno Burciaga (Electronically Signed) Final Date: 19 July 2024 16:12
[2024-07-15] VITALS (16 sets, daily range): BP systolic 133–161; BP diastolic 58–85; PULSE 70–91; RESP 16–24; TEMP 36.2–36.8; O2SAT 92–100; BMI 32.8
[2024-07-15] MEDS: ALBUTEROL/IPRATROPIUM (Duoneb) RT SOL 3 ML NEBU INH ×4 (00:27→19:10)
[2024-07-15] MEDS: FUROSEMIDE INJ 10 MG/ML 4ML VIAL 40 MG IVP (06:02)
[2024-07-15 06:07] LABS: Basophils # (Auto) 0.1 Thou/mm3 (0.0-0.2); Basophils % (Auto) 1 % (0-2.5); Eosinophils # (Auto) 0.1 Thou/mm3 (0.0-0.5); Eosinophils % (Auto) 1 % (0-10); Hematocrit 31.3 % (36.0-46.0); Immature Granulocytes % (Auto) 0 % (0-0); Immature Granulocytes Auto 0.02 Thou/mm3 (0.00-0.00); Lymphocytes # (Auto) 1.6 Thou/mm3 (1.0-4.8); Lymphocytes % (Auto) 21 % (10-50); Mean Corpuscular HGB Conc 27.5 g/dl (31.0-37.0); Mean Corpuscular Hemoglobin 18.9 pg (25.0-35.0); Mean Corpuscular Volume 69 fL (80-100); Monocytes # (Auto) 0.9 Thou/mm3 (0.0-0.8); Monocytes % (Auto) 11 % (0-12); Neutrophils # (Auto) 5.1 Thou/mm3 (1.8-7.7); Neutrophils % (Auto) 66 % (37-80); Nucleated Red Blood Cell # 0.02 Thou/mm3 (0.00-0.00); Nucleated Red Blood Cell % 0 /100 WBC (0); Platelet Count 234 Thou/mm3 (140-440); Red Blood Count 4.54 Miln/mm3 (4.00-5.20); White Blood Count 7.7 Thou/mm3 (3.6-11.0)
[2024-07-15 06:13] LABS: Hemoglobin 8.6 g/dL (12.0-16.0)
[2024-07-15 06:27] LABS: Alanine Aminotransferase < 7 U/L (10-49); Albumin, Serum 4.1 gm/dL (3.4-4.8); Albumin/Globulin Ratio 1.5 (1.2-2.2); Alkaline Phosphatase 71 U/L (46-116); Anion Gap 6 (7-16); Aspartate Amino Transferase 16 U/L (0-34); BUN/Creatinine Ratio 35 Ratio (12-20); Bilirubin,Total 0.3 mg/dL (0.3-1.2); Blood Urea Nitrogen 21 mg/dL (9-23); Calcium 9.4 mg/dL (8.3-10.6); Calcium (Corrected) 9.4 mg/dL (8.5-10.1); Carbon Dioxide 36.8 mMol/L (20.0-31.0); Chloride 97 mMol/L (98-107); Creatinine (Component) 0.6 mg/dL (0.6-1.3); Estimated Creatinine Clearance 74.2 mL/min (>60); Globulin 2.7 gm/dL (2.3-3.5); Glucose 95 mg/dL (74-106); Magnesium 2.1 mg/dL (1.6-2.6); Osmolality,Calculated 282 (275-295); Phosphorous 3.9 mg/dL (2.4-5.1); Sodium 140 mMol/L (136-145); Total Protein 6.8 gm/dL (5.7-8.2); eGFR > 60 See Note
[2024-07-15] MEDS: ONDANSETRON INJ 2 MG/ML INJ 2 ML 4 MG IV (07:59)
[2024-07-15] MEDS: amLODIPine BESYLATE 5 MG TABLET 10 MG PO (08:02)
[2024-07-15] MEDS: SENNA TABLET 1 TAB PO (08:02)
[2024-07-15] MEDS: METOPROLOL SUCCINATE XL 25 MG TABCR 100 MG PO (08:02)
[2024-07-15] MEDS: FLUTICASONE 110 MCG 2 PUFF INH (08:03)
[2024-07-15] MEDS: KETOROLAC 0.5% 1 DROP RIGHT EYE ×2 (08:04→20:28)
[2024-07-15] MEDS: ASPIRIN EC 81 MG TABEC PO (08:05)
--- NOTE | 2024-07-15 15:26 | PD.RESPRO ---
Documentation for date of: 07/15/24 Subjective Subjective Interval history: No acute events overnight.?Patient seen and examined at bedside this AM.?Patient reports doing well this morning and ate her breakfast. She reports some improvement with her breathing. Patient states that she lives with her daughter who helps care for her. Patient states is wheelchair-bound. PT evaluation will be ordered. Labs and vitals were reviewed. Hemoglobin stable at 8.6.?Chemistry panel stable. Patient does have an elevated bicarb level but appears to have been present for at least 1 year. No further complaints at this time. Currently awaiting echo reading. Decreased Lasix dose from 40 to 20 mg IV BID. Review of systems otherwise negative except what is mentioned above. Exam Vital Signs Temp Pulse Resp BP Pulse Ox O2 Del Method O2 Flow Rate 98.2 F 85 18 136/64 H 100 Nasal Cannula 1 07/15/24 12:00 07/15/24 13:08 07/15/24 13:08 07/15/24 12:00 07/15/24 13:08 07/15/24 12:00 07/15/24 13:08 Narrative Exam Physical Exam General: Awake and in no acute distress. Conversational and non-toxic appearing. HEENT: Normocephalic, atraumatic, mucous membranes moist. On nasal cannula. Heart: Regular rate and rhythm, no murmurs. Lungs: Mild bilateral crackles without wheezing. Abdomen: Soft, obese, nondistended, nontender, positive bowel sounds. ?No guarding or rebound tenderness. Neurologic: Alert and oriented x3, no gross neurological deficit, and patient able to move all 4 extremities. Extremities: Bilateral non-pitting lower extremity edema. Skin: No rash or ecchymoses. Objective Labs 07/16/24 05:07 07/16/24 05:07 Labs: Laboratory Results - last 24 hr 07/15/24 05:31 WBC 7.7 D RBC 4.54 Hgb 8.6 L Hct 31.3 L MCV 69 L MCH 18.9 L MCHC 27.5 L RDW Std Deviation 50.0 H Plt Count 234 D Neut % (Auto) 66 Lymph % (Auto) 21 [place] % (Auto) 11 Eos % (Auto) 1 Baso % (Auto) 1 Neut # (Auto) 5.1 Lymph # (Auto) 1.6 [place] # (Auto) 0.9 H Eos # (Auto) 0.1 Baso # (Auto) 0.1 Immature Gran # (Auto) 0.02 H Absolute Nucleated RBC 0.02 H Immature Gran % 0 Nucleated RBC % 0 Sodium 140 Potassium 4.0 Chloride 97 L Carbon Dioxide 36.8 H Anion Gap 6 L BUN 21 Creatinine 0.6 Estim Creat Clear Calc 74.2 eGFR > 60 BUN/Creatinine Ratio 35 H Glucose 95 D Calculated Osmolality 282 Calcium 9.4 Corrected Calcium 9.4 Phosphorus 3.9 Magnesium 2.1 Total Bilirubin 0.3 AST 16 ALT < 7 L Alkaline Phosphatase 71 Total Protein 6.8 Albumin 4.1 Globulin 2.7 Albumin/Globulin Ratio 1.5 ABG Interpretation ABG results: 07/14/24 09:10 VBG pH 7.44 VBG pCO2 58 H VBG pO2 33 VBG Base Excess 13 H Quality Measures Quality Measures none Advance care planning discussed with:: patient Assessment & Plan Assessment Current Active Medications: Generic Name Dose Route Start Last Admin Trade Name Freq PRN Reason Stop Dose Admin Acetaminophen 650 mg 07/13/24 23:18 Acetaminophen 325 Mg Tablet PO 08/12/24 23:17 Q6H PRN PAIN SCALE 1-3 (mild Acetaminophen 650 mg 07/13/24 23:18 Acetaminophen 325 Mg Tablet PO 08/12/24 23:17 Q6H PRN Fever >100.4 Hydrocodone Bitart/Acetaminophen 1 tab 07/13/24 23:18 Hydrocodone/Apap 10/325 Tab PO 07/18/24 23:17 Q4HR PRN PAIN SCALE 7-10 (Severe Albuterol/Ipratropium 3 ml 07/14/24 01:00 07/15/24 12:59 Albuterol/Ipratropium (Duoneb) Rt Iva 3 Ml Nebu INH 08/13/24 00:59 3 ml Q6HRRT TRISTAN Administration Amlodipine Besylate 10 mg 07/14/24 09:00 07/15/24 08:02 Amlodipine Besylate 5 Mg Tablet PO 08/13/24 08:59 10 mg QDAY TRISTAN Administration Aspirin 81 mg 07/14/24 09:00 07/15/24 08:05 Aspirin Ec 81 Mg Tabec PO 08/13/24 08:59 81 mg QDAY TRISTAN Administration Fluticasone Propionate 2 puff 07/14/24 19:45 07/15/24 08:03 Fluticasone 110 Mcg 12 Gm Inh INH 08/13/24 19:44 2 puff BIDRT TRISTAN Administration Furosemide 20 mg 07/15/24 18:00 Furosemide Inj 10 Mg/Ml Vial 2 Ml IVP 08/14/24 17:59 BIDD TRISTAN Ceftriaxone Sodium 1,000 mg/ 50 mls @ 100 mls/hr 07/14/24 02:00 07/14/24 21:24 Sodium Chloride IV 07/21/24 01:59 100 mls/hr QDAY@2100 TRISTAN Administration Azithromycin 250 mg/ Sodium 250 mls @ 250 mls/hr 07/14/24 21:00 07/14/24 22:30 Chloride IV 07/21/24 20:59 250 mls/hr QDAY@2100 TRISTAN Administration Ketorolac Tromethamine 1 drop 07/14/24 09:00 07/15/24 08:04 Ketorolac Op Iva 0.5% 5 Ml Btl RIGHT EYE 08/13/24 08:59 1 drop BID TRISTAN Administration Meclizine HCl 50 mg 07/13/24 23:27 Meclizine Hcl 25 Mg Tablet PO 08/13/24 08:59 QDAY PRN dizzienss Metoprolol Succinate 100 mg 07/14/24 09:00 07/15/24 08:02 Metoprolol Succinate Xl 25 Mg Tabcr PO 08/13/24 08:59 100 mg QDAY TRISTAN Administration Ondansetron HCl 4 mg 07/13/24 23:18 07/15/24 07:59 Ondansetron Inj 2 Mg/Ml Inj 2 Ml IV 08/12/24 23:17 4 mg Q6H PRN Administration NAUSEA OR VOMITING Protocol Oxycodone/Acetaminophen 1 tab 07/13/24 23:18 Oxycodone/Apap 5/325 Tablet PO 07/18/24 23:17 Q6H PRN PAIN SCALE 4-6 (Moderate Sennosides 1 tab 07/14/24 11:15 07/15/24 08:02 Senna Tablet PO 08/13/24 11:14 1 tab QDAY TRISTAN Administration Protocol Plan 83-year-old female PMHx of COPD with frequent exacerbation, on 2 L home O2, HTN, GERD, seasonal allergies, and unspecified CHF presenting with worsening shortness of breath. Admitted for AHRF in settings of pneumonia versus COPD/CHF exacerbation. #Acute hypoxic respiratory failure #Congestive heart failure exacerbation #Left base pneumonia #COPD on home oxygen History of COPD and CHF, on 2 L home baseline oxygen and LASIX 40 daily Patient was diagnosed with pneumonia last week, failed a course of Levaquin outpatient. Has persistent productive cough with white sputum, worsening SOB, and exertional dyspnea over the last week, despite doubling her oxygen dose. Also, reports ongoing orthopnea, worsening lower extremity swelling. BNP 188. No echocardiogram on file. CXR showed mild CHF superimposed left base pneumonia. Currently afebrile, no leukocytosis. Negative influenza A/B and bedside COVID Venous Doppler ultrasound negative for any DVT VBG showed pH 7.44, pCO2 58 and pO2 33 Currently on 2 L NC, satting appropriately. Plan: -Continue fluticasone 100 mcg 2 puffs twice daily -Continue IV azithromycin and ceftriaxone -Continue DuoNebs q6h -Decreased IV diuresis with Lasix 40 mg BID to 20 mg BID -Continue home metoprolol succinate 100 mg and aspirin 81 mg daily -Strict RICK's, fluid restriction, daily weight -Pending sputum and blood culture, MRSA -Pending echocardiogram #Hypertension #Atrial fibrillation, rate controlled Likely paroxysmal. No history of A-fib. BP 144/62, EKG showed atrial fibrillation, HR 75. Troponin negative. Denies chest pain. [id number] 5, CVA risk 7-10% annually. HAS-BLED 3-4 (pending INR), 6-9% bleeding risk. Plan: -Continue home amlodipine 10 mg daily -Will consider risk/benefits of starting DOAC and have shared decision making with patient #Iron deficiency anemia Admission Hgb 7.1 (baseline around 10), MCV 66, HCT 27.1, platelets normal. Denies signs or symptoms of bleed including GI bleed. No history of anemia. Never had colonoscopy or endoscopy done. Patient was transfused 1 unit PRBC after admission Iron panel shows: Iron 56, TIBC 433, iron saturation 12% and ferritin 11 Plan: -Consider iron supplementation when discharging the patient -Follow-up with PCP #GERD Patient is on home dexlansoprazole 60 mg p.o. daily Plan: -Will monitor for any symptoms at this time we will hold off on PPI treatment #Motion sickness Has occasional dizziness, previous diagnosed with motion sickness. Plan: -Continue home including 50 mg daily PRN #Right eye inflammation (unspecified) Plan: -Continue home KETOROLAC OD 1 drop BID Hospital Management: Diet: Cardiac Lines: PIV Bowel: Senna GI prophylaxis: Not needed DVT prophylaxis: SCDs Disposition: Acute hypoxic respiratory failure secondary to CHF exacerbation pneumonia treatment CODE STATUS: Limited code, no intubation. Patient plan of care was discussed with the attending physician, Dr. Laird. Sarika Lal, PGY-2 Attending Provider Attestation/Addendum I have examined the patient, reviewed labs and imaging findings, discussed the case with the resident(s), and reviewed entered orders. I agree with the plan of care as outlined in this note. Dr. Eitan MD
[2024-07-15] MEDS: FUROSEMIDE INJ 10 MG/ML VIAL 2 ML 20 MG IVP (18:37)
[2024-07-15] MEDS: cefTRIAXone 1,000 MG in SODIUM CHLORIDE 0.9% (Popper) 50 ML 100 MG IV (20:15)
[2024-07-15] MEDS: AZITHROMYCIN INJ 250 MG in SODIUM CHLORIDE 0.9% 250 ML 250 ML IV (21:05)
[2024-07-16] VITALS (10 sets, daily range): BP systolic 144–161; BP diastolic 68–89; PULSE 77–92; RESP 18–23; TEMP 36.1–36.7; O2SAT 93–97
[2024-07-16] MEDS: ALBUTEROL/IPRATROPIUM (Duoneb) RT SOL 3 ML NEBU INH ×2 (00:10→07:17)
[2024-07-16] MEDS: FUROSEMIDE INJ 10 MG/ML VIAL 2 ML 20 MG IVP (05:23)
[2024-07-16 06:00] LABS: Basophils # (Auto) 0.1 Thou/mm3 (0.0-0.2); Basophils % (Auto) 1 % (0-2.5); Eosinophils # (Auto) 0.1 Thou/mm3 (0.0-0.5); Eosinophils % (Auto) 2 % (0-10); Hematocrit 32.2 % (36.0-46.0); Immature Granulocytes % (Auto) 0 % (0-0); Immature Granulocytes Auto 0.01 Thou/mm3 (0.00-0.00); Lymphocytes # (Auto) 0.9 Thou/mm3 (1.0-4.8); Lymphocytes % (Auto) 13 % (10-50); Mean Corpuscular Hemoglobin 18.8 pg (25.0-35.0); Mean Corpuscular Volume 70 fL (80-100); Monocytes # (Auto) 0.8 Thou/mm3 (0.0-0.8); Monocytes % (Auto) 12 % (0-12); Neutrophils # (Auto) 4.8 Thou/mm3 (1.8-7.7); Neutrophils % (Auto) 72 % (37-80); Nucleated Red Blood Cell % 0 /100 WBC (0); Platelet Count 290 Thou/mm3 (140-440); RDW Standard Deviation 51.4 fL (36.4-46.3); Red Blood Count 4.63 Miln/mm3 (4.00-5.20); White Blood Count 6.7 Thou/mm3 (3.6-11.0)
[2024-07-16 06:09] LABS: Alanine Aminotransferase < 7 U/L (10-49); Albumin, Serum 3.9 gm/dL (3.4-4.8); Albumin/Globulin Ratio 1.4 (1.2-2.2); Alkaline Phosphatase 75 U/L (46-116); Anion Gap 4 (7-16); Aspartate Amino Transferase < 10 U/L (0-34); BUN/Creatinine Ratio 34 Ratio (12-20); Bilirubin,Total 0.3 mg/dL (0.3-1.2); Blood Urea Nitrogen 17 mg/dL (9-23); Calcium 9.8 mg/dL (8.3-10.6); Calcium (Corrected) 9.9 mg/dL (8.5-10.1); Carbon Dioxide 38.1 mMol/L (20.0-31.0); Chloride 99 mMol/L (98-107); Creatinine (Component) 0.5 mg/dL (0.6-1.3); Globulin 2.7 gm/dL (2.3-3.5); Glucose 115 mg/dL (74-106); Osmolality,Calculated 283 (275-295); Phosphorous 5.1 mg/dL (2.4-5.1); Potassium 4.2 mMol/L (3.4-5.1); Sodium 141 mMol/L (136-145); Total Protein 6.6 gm/dL (5.7-8.2); eGFR > 60 See Note
[2024-07-16 06:20] LABS: Hemoglobin 8.7 g/dL (12.0-16.0)
[2024-07-16] MEDS: FLUTICASONE 110 MCG 2 PUFF INH (07:17)
[2024-07-16] MEDS: POLYETHYLENE GLYCOL 17 GM PACKET PO (08:17)
[2024-07-16] MEDS: SENNA TABLET 1 TAB PO (08:18)
[2024-07-16] MEDS: METOPROLOL SUCCINATE XL 25 MG TABCR 100 MG PO (08:18)
[2024-07-16] MEDS: ASPIRIN EC 81 MG TABEC PO (08:19)
[2024-07-16] MEDS: amLODIPine BESYLATE 5 MG TABLET 10 MG PO (08:19)
[2024-07-16] MEDS: KETOROLAC 0.5% 1 DROP RIGHT EYE (08:20)
--- NOTE | 2024-07-16 12:14 | ESDS_ITS ---
<Statement entered by Silvia Marie DO - 07/16/24 15:32> I, Silvia Marie DO, attest that I was physically present for the navarro portions of the service and evaluated the patient with the resident and I reviewed and discussed the case with the resident and agree with the resident's findings and plans of care as documented above Planned Discharge Date 07/16/24 DS: Providers Provider Date of admission: 07/13/24 23:18 Primary care physician: Naveed Song MD Admitting Provider: Heladio Sheppard MD Attending Provider on Admission: Heladio Sheppard MD Consults: 07/15/24 11:38 Referral Physical Therapy Stat Comment: Physician Instructions: Attending Provider on DC: Delta Montanez MD Discharging Provider: Delta Montanez MD DS: Diagnosis Problem List Completed Was Problem List Reviewed/Reconciled?: Yes Hospital Course Hospital Course Hospital course: 83-year-old female past medical history of COPD on 2 L home oxygen, h ypertension, GERD, seasonal allergies and unspecified CHF presenting with shortness of breath. Patient has been apparently having 2 weeks of progressive cough with white sputum production, exertional shortness of breath. Patient was seen by PCP prior to hospital admission and was given antibiotics and steroids without much improvement. In the ED, patient was afebrile satting 90 on 4 L nasal cannula, WBC 8.5, EKG showed atrial fibrillation chest x-ray showed mild CHF with superimposed left base pneumonia. Patient was admitted for acute hypoxic/hypercapnic respiratory failure secondary to CHF exacerbation, COPD exacerbation along with left basilar. IV antibiotics were started, venous duplex ultrasound which was ordered was negative for any DVT. Patient also had low hemoglobin as result 1 unit PRBC was transfused. Patient had improvement in her oxygenation needs and repeat hemoglobin hematocrit showed stable blood level. Patient symptomatically improved and required baseline oxygen needs and denied having any other concerning symptoms. Patient will be discharged following strict instructions and will need to follow-up on echo results with PCP. Please complete azithromycin 250mg oral tablets for an additional 3 days. Please takwe Iron tablets once a day as you have Iron Deficiency Anemia. Stop taking Ibuprofen as this medication can affect your kidneys; take Tylenol OTC for pain as needed. Use your inhalers as directed to prevent future episodes of COPD exacerbation Please follow-up with your PCP within 1 week. Follow-up on Echocardiogram results and ask your PCP to refer you to a workers compensation consultant. If your symptoms worsen or if you develop new chest pain, shortness of breath, dizziness or loss of consciousness - please come back to the ED immediately. Hospital Diagnosis: #Acute hypoxic respiratory failure #Congestive heart failure exacerbation #Left base pneumonia #COPD on home oxygen #Hypertension #Atrial fibrillation, rate controlled #Iron deficiency anemia #GERD #Motion sickness #Right eye inflammation (unspecified) Delta Montanez, PGY-1 Status at Discharge Overall status at discharge: patient is progressing back to baseline Time Spent with Patient Time attestation: Total time spent providing and/or coordinating discharge services: 45 minutes Time spent: Greater than 30 minutes Exam Vital Signs Temp Pulse Resp BP Pulse Ox O2 Del Method O2 Flow Rate 97.7 F 82 20 161/75 H 93 L Nasal Cannula 3 07/16/24 08:00 07/16/24 08:19 07/16/24 08:00 07/16/24 08:19 07/16/24 08:00 07/16/24 08:00 07/16/24 08:00 Narrative Exam Physical Exam General: Awake and in no acute distress. Conversational and non-toxic appearing. HEENT: Normocephalic, atraumatic, mucous membranes moist. On nasal cannula. Heart: Regular rate and rhythm, no murmurs. Lungs: Mild bilateral crackles without wheezing. Abdomen: Soft, obese, nondistended, nontender, positive bowel sounds. ?No guarding or rebound tenderness. Neurologic: Alert and oriented x3, no gross neurological deficit, and patient able to move all 4 extremities. Extremities: Bilateral non-pitting lower extremity edema. Skin: No rash or ecchymoses. Discharge Plan Plan Patient Disposition: HOME (Self Care) Care Plan Goals: Please complete azithromycin 250mg oral tablets for an additional 3 days. Please takwe Iron tablets once a day as you have Iron Deficiency Anemia. Stop taking Ibuprofen as this medication can affect your kidneys; take Tylenol OTC for pain as needed. Use your inhalers as directed to prevent future episodes of COPD exacerbation Please follow-up with your PCP within 1 week. Follow-up on Echocardiogram results and ask your PCP to refer you to a workers compensation consultant. If your symptoms worsen or if you develop new chest pain, shortness of breath, dizziness or loss of consciousness - please come back to the ED immediately. Prescriptions/Referrals Prescriptions/Med Rec: New azithromycin 250 mg tablet 250 mg PO QDAY Qty: 3 0RF ferrous sulfate [iron] 325 mg (65 mg iron) tablet 325 mg PO QDAY 30 Days Qty: 30 0RF Continued fluticasone propionate [Flovent HFA] 110 mcg/actuation Hfa Aerosol Inhaler 2 puff INHALATION BID aspirin 81 mg Tablet,Delayed Release (Dr/Ec) 81 mg PO QDAY albuterol sulfate 90 mcg/actuation Aerosol Powdr Breath Activated 2 inh INHALATION Q6H metoprolol succinate 100 mg tablet extended release 24 hr 100 mg PO QDAY amlodipine 10 mg tablet 10 mg PO QDAY omeprazole 20 mg capsule,delayed release(DR/EC) 20 mg PO QDAY ipratropium-albuterol 0.5 mg-3 mg(2.5 mg base)/3 mL solution for nebulization 3 ml inhalation Q6H PRN (Reason: shortness of breath or wheezing) Qty: 90 0RF albuterol sulfate 1.25 mg/3 mL solution for nebulization 1.25 mg inhalation QID PRN (Reason: shortness of breath or wheezing) Qty: 90 0RF ketorolac 0.5 % drops 1 drp OPHTHALMIC (EYE) BID Trelegy Ellipta 200-62.5-25 mcg Blister With Device 1 inh INHALATION QDAY meclizine 50 mg tablet 50 mg PO QDAY PRN (Reason: motion sickness) Qty: 10 0RF dexlansoprazole 60 mg capsule,biphase delayed releas 60 mg PO DAILY furosemide [Lasix] 20 mg tablet 40 mg PO QAM Discontinued ibuprofen 600 mg tablet 600 mg PO DAILY PRN (Reason: pain) Referrals: Naveed Song MD [Primary Care Provider] - Patient/Caregiver Discharge Instructions Education Materials: COPD: Wheezing and Chest Tightness, Coping with Heart Failure, Discharge Instructions: COPD Print Language: Welsh Stand Alone Forms: [employer] Award Info., Patient Portal Info Letter Discharge Order Discharge Orders: Discharge (Routine); Ordered 07/16/24 Ordered By: Dleta Montanez Quality Discharge Quality Measures VTE prophylaxis
== END 2024-07-16 12:51 | disposition home or self-care (01) | DRG 190 ==
LOC: SERX 21:16 → SERHOLD 23:56 → S2NX 07-14 01:11
PROVIDERS: Nurse Practitioner Family; Admitting Provider Student in an Organized Health Care Education/Training Program; Emergency Provider Emergency Medicine; PCP Family Medicine; Visit Provider Student in an Organized Health Care Education/Training Program
DX: J44.1 Chronic obstructive pulmonary disease with (acute) exacerbation (principal); J18.9 Pneumonia, unspecified organism; J96.21 Acute and chronic respiratory failure with hypoxia; J96.22 Acute and chronic respiratory failure with hypercapnia; I50.30 Unspecified diastolic (congestive) heart failure; J44.0 Chronic obstructive pulmonary disease with (acute) lower respiratory infection; I11.0 Hypertensive heart disease with heart failure; D50.9 Iron deficiency anemia, unspecified; K21.9 Gastro-esophageal reflux disease without esophagitis; I48.91 Unspecified atrial fibrillation; T75.3XXA Motion sickness, initial encounter; H57.89 Other specified disorders of eye and adnexa; J30.2 Other seasonal allergic rhinitis; Z99.81 Dependence on supplemental oxygen; Z87.891 Personal history of nicotine dependence; Z79.899 Other long term (current) drug therapy; Z79.82 Long term (current) use of aspirin; Z88.0 Allergy status to penicillin; Z88.1 Allergy status to other antibiotic agents; Z88.8 Allergy status to other drugs, medicaments and biological substances; Z99.3 Dependence on wheelchair; Z90.710 Acquired absence of both cervix and uterus
CPT/HCPCS: 36415; 36600; 71046; 80053; 82803; 83540; 83550; 83735; 83880; 84100; 84484; 85025; 85610; 85730; 86850; 86900; 86901; 86923; 87040; 87081; 87205; 87811; 93306; 93970; 94640; 94667; 96374; 99285; A9270; J0456; J0696; J1100; J1940; J2405; J2470; J7050; P9016

== ENCOUNTER 2024-09-23 11:01 | Emergency (ER) | payer MEDICARE, MEDICAID, SELFPAY ==
[2024-09-23 11:02] VITALS: BMI 31.8
[2024-09-23 11:44] VITALS: BP 147/71; PULSE 69; RESP 18; TEMP 36.7; O2SAT 98
--- NOTE | 2024-09-23 12:04 | XR_ITS ---
Examination: PA lateral chest 2 views TECHNIQUE: Sitting PA lateral chest 2 views Exam daytime: September 23, 2024 1230 hours INDICATIONS: Coughing and shortness of breath beginning 2 weeks ago FINDINGS: Mild heart failure. Mild enlargement left ventricle. Prominent vascular congestion. Minimal septal edema at the lung bases IMPRESSION: Mild heart failure
--- NOTE | 2024-09-23 12:05 | EDRME_ITS ---
Rapid Medical Screening Exam COUNT INCLUDES THE [facility] Arrival date/time: 09/23/24 11:01 84-year-old female presents Emergency Department today for complaint of cough, congestion and shortness of breath ongoing x 4 weeks Chief Complaint: Flu Like Symptoms Vital signs: Vital Signs Temperature 98.1 F 09/23/24 11:44 Pulse Rate 69 09/23/24 11:44 Respiratory Rate 18 09/23/24 11:44 Blood Pressure 147/71 H 09/23/24 11:44 Pulse Oximetry (%) 98 09/23/24 11:44 Oxygen Delivery Method Nasal Cannula 09/23/24 11:44 Oxygen Flow Rate 2 09/23/24 11:44
[2024-09-23 13:29] LABS: Lactate (Lactic Acid) 1.1 mMol/L (0.4-2.0)
[2024-09-23 13:36] LABS: Basophils % (Auto) 0 % (0-2.5); Eosinophils # (Auto) 0.1 Thou/mm3 (0.0-0.5); Eosinophils % (Auto) 1 % (0-10); Hematocrit 36.2 % (36.0-46.0); Hemoglobin 10.8 g/dL (12.0-16.0); Immature Granulocytes % (Auto) 0 % (0-0); Immature Granulocytes Auto 0.03 Thou/mm3 (0.00-0.00); Lymphocytes # (Auto) 1.4 Thou/mm3 (1.0-4.8); Lymphocytes % (Auto) 16 % (10-50); Mean Corpuscular HGB Conc 29.8 g/dl (31.0-37.0); Mean Corpuscular Hemoglobin 22.4 pg (25.0-35.0); Mean Corpuscular Volume 75 fL (80-100); Monocytes # (Auto) 0.6 Thou/mm3 (0.0-0.8); Monocytes % (Auto) 7 % (0-12); Neutrophils # (Auto) 6.8 Thou/mm3 (1.8-7.7); Neutrophils % (Auto) 76 % (37-80); Nucleated Red Blood Cell % 0 /100 WBC (0); Platelet Count 248 Thou/mm3 (140-440); RDW Standard Deviation 51.7 fL (36.4-46.3); Red Blood Count 4.82 Miln/mm3 (4.00-5.20)
--- NOTE | 2024-09-23 13:52 | EDNOTE_ITS ---
Upper Respiratory Inf. RME/HPI General Chief Complaint: Flu Like Symptoms Stated Complaint: COUGH FOR A 4 WKS, HARD TO BREATH Time Seen by Provider: 09/23/24 13:46 Arrival date/time: 09/23/24 11:01 Limitations: no limitations RME / HPI RME / HPI Narrative: 09/23/24 11:01 84-year-old female presents Emergency Department today for complaint of cough, congestion and shortness of breath ongoing x [address] GARCIA MAIN ED EVALUATION: 84 year old female with history of COPD, hypertension, AFib, CHF, presents to the ED for evaluation of cough today. Reportedly cough began 1 month ago and productive in nature, phlegm clear-yellow in color. Reportedly was evaluated at an urgent care 09/14/24 for the cough and was prescribed Azithromycin which she completed. Reports no change in symptoms. Denies fevers, chills, chest pain, abdominal pain, n/v/d, or urinary symptoms. Patient mentioned at home she has a Trelegy inhaler, Albuterol inhaler, Flovent, and duoneb. Related Data Home Medications ?Medication ?Instructions ?Recorded ?Confirmed fluticasone propionate 110 2 puff inhalation BID 06/2507/14/24 mcg/actuation HFA aerosol inhaler (Flovent HFA) aspirin 81 mg tablet,delayed 81 mg PO QDAY 09/24/20 release albuterol sulfate 90 mcg/actuation 2 inh inhalation Q6 H 09/25/20 07/14/24 breath activated powder inhaler amlodipine 10 mg tablet 10 mg PO QDAY 03/31/2107/14 metoprolol succinate 100 mg 100 mg PO QDAY 03/31/21 tablet,extended release 24 hr omeprazole 20 mg capsule,delayed 20 mg PO QDAY 1 07/11/23 release ketorolac 0.5 % eye drops 1 drp ophthalmic (eye) BID 0 07/11/23 07/14/24 fluticasone fur. 200 mcg-umeclid 1 inh inhalation QDAY 07/12/23 07/14/24 62.5 mcg-vilant 25 mcg inhalat.powder (Trelegy Ellipta) dexlansoprazole 60 mg 60 mg PO DAILY 07/14/2406/18 capsule,biphase delayed release furosemide 20 mg tablet (Lasix) 40 mg PO QAM 07/14/24 07/14/24 Previous Rx's ?Medication ?Instructions ?Recorded ipratropium 0.5 mg-albuterol 3 mg 3 ml inhalation Q6H PRN shortness 02/13/23 (2.5 mg base)/3 mL nebulization of breath or wheezing #90 mL soln albuterol sulfate 1.25 mg/3 mL 1.25 mg (3 mL) inhalati on QID PRN 06/06/23 solution for nebulization shortness of breath or wheez ing #90 mL meclizine 50 mg tablet 50 mg PO QDAY PRN motion sic kness 07/25/23 #10 tabs azithromycin 250 mg tablet 250 mg PO QDAY #3 tabs 07/11 levofloxacin 250 mg tablet 250 mg PO Q24H uri #7 tabs 09/23/24 metolazone 2.5 mg tablet 2.5 mg PO QDAY DIURETIC #7 t abs 09/23/24 Allergies Allergy/AdvReac Type Severity Reaction Status Date / Time amoxicillin Allergy Severe SOB, RASH, Verified 09/23/24 11:02 REDNESS lisinopril Allergy Severe Swelling Verified 09/23/24 11:02 of Lip/Tongue/Throat Penicillins Allergy Severe Swelling Verified 09/23/24 11:02 of Lip/Tongue/Throat Review of Systems Review of Systems Narrative Review of Systems: GEN: No fever, no chills, no weight loss EYES: No discharge, no visual changes, no pain HEENT: No ear pain, no congestion, no sore throat PULM: No shortness of breath, +cough, no congestion CV: No chest pain, no palpitations GI: No nausea, no vomiting, no diarrhea, no pain, no constipation : No frequency, no urgency, no dysuria MUSC/SKEL: No joint pain, no back pain SKIN: No rash PSYCH: No hallucinations, no depression HEME/LYMPH: No easy bleeding or bruising tendencies NEURO: No weakness, no headache Past Medical History Past Medical History CARDIAC: Positive Cardiac Disorders, Atrial Fibrillation, Congestive Heart Failure, Valvular Heart Disease, Edema and Hypertension RESPIRATORY: Positive Chronic Obstructive Pulmonary Disease (COPD), Asthma, Emphysema and Pneumonia GASTROINTESTINAL: Positive Gastrointestinal Disorders, Gastroesophageal Reflux Disease and Obesity MUSCULOSKELETAL: Positive Musculoskeletal Disorders, Arthritis, Osteoporosis and Fractures ENT: Positive Cataracts Family History FAMILY HISTORY: Negative Family Neurologic Problems, Family Psychiatric Problems, Family Respiratory Disorders, Family Cardiac Disorders, Family Gastrointestinal Problems, Family Cancer, Family Surgery or Family Anesthesia Reaction Surgical History SURGICAL: Positive Hysterectomy and Section Social History SMOKING STATUS: Former smoker SECOND HAND EXPOSURE: Yes SUBSTANCE USE: does not use ED Exam General Limitations: Present no limitations General appearance: Present alert and other (wearing home oxygen ) Head Head exam: Present atraumatic, normocephalic and normal inspection Eye Eye exam: Present normal appearance, PERRL and EOMI ENT ENT exam: Present normal exam, normal oropharynx and mucous membranes moist Neck Neck exam: Present trachea midline Chest Chest inspection: Present normal inspection and symmetric chest wall rise Respiratory Respiratory exam: Present other (left lower lobe exporatory wheezing ) Cardiovascular Cardiovascular exam: Present regular rate, normal rhythm and other (distant heart sounds) Abdominal Exam Abdominal exam: Present soft and normal bowel sounds Extremities Exam Extremities exam: Present normal inspection and full ROM Back Exam Back exam: Present full ROM and other (scoliosis sof the upper spine with head tilted to the right ) Neurological Exam Neurological exam: Present alert, oriented X3 and CN II-XII intact Psychiatric Psychiatric exam: Present normal affect and normal mood Skin Skin exam: Present warm, dry, intact and normal color Course Course Course Narrative: chest xray ordered to help determine etiology of cough. Quality Measures none Orders Category Date Time Status Bedside COVID-19 Antigen Test NOW Care 09/23/24 12:04 Active Bedside Influenza A&B Antigen Test NOW Care 09/23/24 12:04 Completed XR chest 2V Stat Exams 09/23/24 12:04 Completed Blood Culture (Lab) Stat Lab 09/23/24 13:14 Received CBC Stat Lab 09/23/24 13:14 Completed Comprehensive Metabolic Panel Stat Lab 09/23/24 13:14 Completed Lactate (Lactic Acid) Stat Lab 09/23/24 13:14 Completed Procalcitonin Stat Lab 09/23/24 13:14 Completed Vital Signs Vital signs: Vital Signs Temperature 98.1 F 09/23/24 11:44 Pulse Rate 69 09/23/24 11:44 Respiratory Rate 18 09/23/24 11:44 Blood Pressure 147/71 H 09/23/24 11:44 Pulse Oximetry (%) 98 09/23/24 11:44 Oxygen Delivery Method Nasal Cannula 09/23/24 11:44 Oxygen Flow Rate 2 09/23/24 11:44 Upper Respiratory Infection MDM Narrative MDM Narrative:: Nellie Rogers am scribing for and in the presence of Dr. Garcia. 1430: Patient remains clinically stable throughout the emergency department visit. We reviewed all the results, analysis, and treatment plans. Patient is amenable to discharge. Strict return precautions were outlined. Patient was discharged in stable condition. Patient data External records reviewed:: [facility] previous records (I reviewed admission from 07/13/2024 through 07/16/2024 for anemia ) Clinical information provided by:: patient Social determinants that could affect healthcare access:: none Patient has the following chronic illnesses:: COPD, hypertension, AFib, CHF How is presenting disease/condition affected by chronic disease/condition?: exacerbated by Evaluation data The following diagnostics were reviewed and interpreted by me:: lab results and radiology exam(s) Lab and/or radiology exams considered but not ordered:: None Interpretation Summary: Ordering Physician: Wilfrido GOLDEN)Mick NP Date of Service: 09/23/24 Procedure(s): XR chest 2V Accession Number(s): [id number] cc: Wilfrido (SWAPNA),Mick BARCENAS; Brandon Nation MD~ Examination: PA lateral chest 2 views TECHNIQUE: Sitting PA lateral chest 2 views Exam daytime: September 23, 2024 1230 hours INDICATIONS: Coughing and shortness of breath beginning 2 weeks ago FINDINGS: Mild heart failure. Mild enlargement left ventricle. Prominent vascular congestion. Minimal septal edema at the lung bases IMPRESSION: Mild heart failure Dictated By: Brandon Nation MD Signed By: <Electronically signed by Brandon Nation MD in OV> 09/23/24 1325 Medications / Prescriptions Medications or Prescriptions considered but not ordered:: None Medication administrations:: See above Consultations Consultation(s) initiated? (list below): No Diagnosis Upper Respiratory Differential Diagnosis: upper respiratory infection, viral infection, bronchitis, influenza and other (COPD exacerbation) Most likely diagnosis given after review of the tests above:: COPD, stable URI Admission Indicated Admission indicated?: not indicated Admission Request Was there a request for admission?: No Disposition Plan Disposition Plan: Discharge Discharge Attestation Discharge Attestation: The patient and all family members were given an opportunity to ask questions and understood the discharge instructions. Discharge instructions specifically effects, indications for sooner follow up or return to the emergency department, and the expected course of current diagnosis. Patient condition: Stable Discharge Plan Plan Patient Disposition: HOME (Self Care) Prescriptions/Referrals Prescriptions/Med Rec: No Action fluticasone propionate [Flovent HFA] 110 mcg/actuation Hfa Aerosol Inhaler 2 puff INHALATION BID aspirin 81 mg Tablet,Delayed Release (Dr/Ec) 81 mg PO QDAY albuterol sulfate 90 mcg/actuation Aerosol Powdr Breath Activated 2 inh INHALATION Q6H metoprolol succinate 100 mg tablet extended release 24 hr 100 mg PO QDAY amlodipine 10 mg tablet 10 mg PO QDAY omeprazole 20 mg capsule,delayed release(DR/EC) 20 mg PO QDAY ipratropium-albuterol 0.5 mg-3 mg(2.5 mg base)/3 mL solution for nebulization 3 ml inhalation Q6H PRN (Reason: shortness of breath or wheezing) Qty: 90 0RF albuterol sulfate 1.25 mg/3 mL solution for nebulization 1.25 mg inhalation QID PRN (Reason: shortness of breath or wheezing) Qty: 90 0RF ketorolac 0.5 % drops 1 drp OPHTHALMIC (EYE) BID Trelegy Ellipta 200-62.5-25 mcg Blister With Device 1 inh INHALATION QDAY meclizine 50 mg tablet 50 mg PO QDAY PRN (Reason: motion sickness) Qty: 10 0RF dexlansoprazole 60 mg capsule,biphase delayed releas 60 mg PO DAILY furosemide [Lasix] 20 mg tablet 40 mg PO QAM azithromycin 250 mg tablet 250 mg PO QDAY Qty: 3 0RF Problem List Clinical Impression: URI (upper respiratory infection), COPD (chronic obstructive pulmonary disease) Patient/Caregiver Discharge Instructions Education Materials: ED URI, Viral W/ Wheezing (Adult) Additional Instructions: Follow-up with your primary care doctor in 3 to 5 days for recheck. You can return to the emergency department sooner if symptoms worsen or if you notice any new, concerning issues. Print Language: Korean Stand Alone Forms: [employer] Award Info., Patient Portal Info Letter
[2024-09-23 14:01] LABS: Alanine Aminotransferase 7 U/L (10-49); Albumin, Serum 4.5 gm/dL (3.4-4.8); Albumin/Globulin Ratio 1.5 (1.2-2.2); Alkaline Phosphatase 85 U/L (46-116); Anion Gap 5 (7-16); Aspartate Amino Transferase 15 U/L (0-34); BUN/Creatinine Ratio 18 Ratio (12-20); Bilirubin,Total 0.2 mg/dL (0.3-1.2); Blood Urea Nitrogen 11 mg/dL (9-23); Calcium 9.2 mg/dL (8.3-10.6); Calcium (Corrected) 9.2 mg/dL (8.5-10.1); Carbon Dioxide 32.9 mMol/L (20.0-31.0); Chloride 99 mMol/L (98-107); Creatinine (Component) 0.6 mg/dL (0.6-1.3); Estimated Creatinine Clearance 71.9 mL/min (>60); Globulin 3.1 gm/dL (2.3-3.5); Glucose 101 mg/dL (74-106); Osmolality,Calculated 273 (275-295); Potassium 3.9 mMol/L (3.4-5.1); Procalcitonin 0.04 ng/ml (0.0-0.49); Sodium 137 mMol/L (136-145); Total Protein 7.6 gm/dL (5.7-8.2); eGFR > 60 See Note
== END 2024-09-23 14:50 | disposition home or self-care (01) ==
LOC: SERX 14:09
PROVIDERS: Nurse Practitioner Primary Care; Emergency Provider Family Medicine; PCP Family Medicine
DX: J06.9 Acute upper respiratory infection, unspecified (principal); J44.89 Other specified chronic obstructive pulmonary disease; I11.0 Hypertensive heart disease with heart failure; I50.9 Heart failure, unspecified; Z87.891 Personal history of nicotine dependence
CPT/HCPCS: 36415; 71046; 80053; 83605; 84145; 85025; 87040; 87400; 87811; 99283

== ENCOUNTER 2025-04-17 10:30 | Emergency (ER) | payer MEDICARE, MEDICAID, SELFPAY ==
[2025-04-17 10:42] VITALS: BP 149/79; PULSE 70; RESP 18; TEMP 37; O2SAT 97; BMI 32.4
--- NOTE | 2025-04-17 11:10 | XR_ITS ---
EXAMINATION: PA lateral chest 2 views TECHNIQUE: Upright PA lateral chest 2 views Date and time: April 17, 2025, 11:21 a.m., comparison 01/24/2025 INDICATIONS: Coughing beginning 2 weeks ago. FINDINGS: Mild bibasilar pneumonia Mild prominence left ventricle Retrocardiac gastric hernia. Mild vascular congestion. Severe osteopenia Increased AP dimension chest Kyphosis dorsal spine secondary to chronic wedging thoracolumbar vertebral bodies IMPRESSION: Mild bibasilar pneumonia
--- NOTE | 2025-04-17 11:11 | PD.EDRME ---
Rapid Medical Screening Exam RME Arrival date/time: 04/17/25 10:30 84-year-old female oxygen dependent presents to the emergency department today stating she has got cough congestion and concerned that she has pneumonia Chief Complaint: Flu Like Symptoms Vital signs: Vital Signs Temperature 98.6 F 04/17/25 10:42 Pulse Rate 70 04/17/25 10:42 Respiratory Rate 18 04/17/25 10:42 Blood Pressure 149/79 H 04/17/25 10:42 Pulse Oximetry (%) 97 04/17/25 10:42 Oxygen Delivery Method Nasal Cannula 04/17/25 10:42 Oxygen Flow Rate 2 04/17/25 10:42 Vital signs reviewed by provider: Yes Exam: On exam patient does not appear ill or toxic no acute distress Clinical Impression: Labs and imaging obtained
[2025-04-17 12:54] LABS: COVID-19 Antigen (In-House) Negative (Negative)
[2025-04-17 12:59] LABS: Basophils # (Auto) 0.0 Thou/mm3 (0.0-0.2); Basophils % (Auto) 0 % (0-2.5); Eosinophils # (Auto) 0.1 Thou/mm3 (0.0-0.5); Eosinophils % (Auto) 0 % (0-10); Hematocrit 41.4 % (36.0-46.0); Hemoglobin 13.3 g/dL (12.0-16.0); Immature Granulocytes Auto 0.04 Thou/mm3 (0.00-0.00); Lymphocytes # (Auto) 1.1 Thou/mm3 (1.0-4.8); Lymphocytes % (Auto) 9 % (10-50); Mean Corpuscular HGB Conc 32.1 g/dl (31.0-37.0); Mean Corpuscular Hemoglobin 28.9 pg (25.0-35.0); Mean Corpuscular Volume 90 fL (80-100); Monocytes # (Auto) 0.6 Thou/mm3 (0.0-0.8); Monocytes % (Auto) 5 % (0-12); Neutrophils # (Auto) 9.7 Thou/mm3 (1.8-7.7); Neutrophils % (Auto) 85 % (37-80); Nucleated Red Blood Cell # 0.00 Thou/mm3 (0.00-0.00); Nucleated Red Blood Cell % 0 /100 WBC (0); Platelet Count 215 Thou/mm3 (140-440); RDW Standard Deviation 43.0 fL (36.4-46.3); Red Blood Count 4.60 Miln/mm3 (4.00-5.20); White Blood Count 11.5 Thou/mm3 (3.6-11.0)
[2025-04-17 13:10] LABS: Alanine Aminotransferase 7 U/L (10-49); Albumin, Serum 4.8 gm/dL (3.4-4.8); Albumin/Globulin Ratio 1.5 (1.2-2.2); Alkaline Phosphatase 89 U/L (46-116); Anion Gap 10 (7-16); Aspartate Amino Transferase 23 U/L (0-34); BUN/Creatinine Ratio 15 Ratio (12-20); Bilirubin,Total 0.3 mg/dL (0.3-1.2); Blood Urea Nitrogen 9 mg/dL (9-23); Calcium 9.7 mg/dL (8.3-10.6); Calcium (Corrected) 9.7 mg/dL (8.5-10.1); Carbon Dioxide 30.2 mMol/L (20.0-31.0); Chloride 98 mMol/L (98-107); Creatinine (Component) 0.6 mg/dL (0.6-1.3); Estimated Creatinine Clearance 72.5 mL/min (>60); Globulin 3.1 gm/dL (2.3-3.5); Glucose 103 mg/dL (74-106); Osmolality,Calculated 274 (275-295); Potassium 4.5 mMol/L (3.4-5.1); Sodium 138 mMol/L (136-145); Total Protein 7.9 gm/dL (5.7-8.2); eGFR > 60 See Note
--- NOTE | 2025-04-17 14:45 | PD.EDURI ---
Upper Respiratory Inf. RME/HPI General Chief Complaint: Flu Like Symptoms Stated Complaint: COUGH, DIARRHEA Arrival date/time: 04/17/25 10:30 RME / HPI RME / HPI Narrative: 04/17/25 10:30 84-year-old female oxygen dependent presents to the emergency department today stating she has got cough congestion and concerned that she has pneumonia DR. FUENTES MAIN ED EVALUATION 84 year old female with history of COPD on 2L home oxygen, hypertension, CHF presents to the ED for evaluation of cough and some congestion beginning yesterday. Reports she had difficulty sleeping due to the cough. States she has used her inhalers and nebulizer treatments with some improvement. However, expressed concerns she may have pneumonia. Denies fevers, chills, sweats. Denies chest pain. Denies nausea, vomiting. Exam: On exam patient does not appear ill or toxic no acute distress Impression: Labs and imaging obtained Related Data Home Medications ?Medication ?Instructions ?Recorded ?Confirmed fluticasone propionate 110 2 puff inhalation BID 06/25/18 07/14/24 mcg/actuation HFA aerosol inhaler (Flovent HFA) aspirin 81 mg tablet,delayed 81 mg PO QDAY 09/24/20 07/14/24 release albuterol sulfate 90 mcg/actuation 2 inh inhalation Q6H 09/25/20 07/14/24 breath activated powder inhaler amlodipine 10 mg tablet 10 mg PO QDAY 03/31/21 07/14/24 metoprolol succinate 100 mg 100 mg PO QDAY 03/31/21 07/14/24 tablet,extended release 24 hr omeprazole 20 mg capsule,delayed 20 mg PO QDAY 04/01/21 07/11/23 release ketorolac 0.5 % eye drops 1 drp ophthalmic (eye) BID 07/11/23 07/14/24 fluticasone fur. 200 mcg-umeclid 1 inh inhalation QDAY 07/12/23 07/14/24 62.5 mcg-vilant 25 mcg inhalat.powder (Trelegy Ellipta) dexlansoprazole 60 mg 60 mg PO DAILY 07/14/24 07/14/24 capsule,biphase delayed release furosemide 20 mg tablet (Lasix) 40 mg PO QAM 07/14/24 07/14/24 Previous Rx's ?Medication ?Instructions ?Recorded ipratropium 0.5 mg-albuterol 3 mg 3 ml inhalation Q6H PRN shortness 02/13/23 (2.5 mg base)/3 mL nebulization of breath or wheezing #90 mL soln albuterol sulfate 1.25 mg/3 mL 1.25 mg (3 mL) inhalation QID PRN 06/06/23 solution for nebulization shortness of breath or wheezing #90 mL meclizine 50 mg tablet 50 mg PO QDAY PRN motion sickness 07/25/23 #10 tabs azithromycin 250 mg tablet 250 mg PO QDAY #3 tabs 07/16/24 levofloxacin 250 mg tablet 250 mg PO Q24H uri #7 tabs 09/23/24 metolazone 2.5 mg tablet 2.5 mg PO QDAY DIURETIC #7 tabs 09/23/24 doxycycline monohydrate 100 mg 100 mg PO BID #14 caps 04/17/25 capsule Allergies Allergy/AdvReac Type Severity Reaction Status Date / Time amoxicillin Allergy Severe SOB, RASH, Verified 09/23/24 11:02 REDNESS lisinopril Allergy Severe Swelling Verified 09/23/24 11:02 of Lip/Tongue/Throat Penicillins Allergy Severe Swelling Verified 09/23/24 11:02 of Lip/Tongue/Throat Review of Systems Review of Systems Systems Reviewed: All systems reviewed, normal except as documented Past Medical History Past Medical History CARDIAC: Positive Cardiac Disorders, Atrial Fibrillation, Congestive Heart Failure, Valvular Heart Disease, Edema and Hypertension RESPIRATORY: Positive Chronic Obstructive Pulmonary Disease (COPD), Asthma, Emphysema and Pneumonia GASTROINTESTINAL: Positive Gastrointestinal Disorders, Gastroesophageal Reflux Disease and Obesity MUSCULOSKELETAL: Positive Musculoskeletal Disorders, Arthritis, Osteoporosis and Fractures ENT: Positive Cataracts HEMATOLOGIC: Positive Anemia OTHER HISTORY: Positive Falls, Blood Transfusions and Measles Family History FAMILY HISTORY: Negative Family Neurologic Problems, Family Psychiatric Problems, Family Respiratory Disorders, Family Cardiac Disorders, Family Gastrointestinal Problems, Family Cancer, Family Surgery or Family Anesthesia Reaction Surgical History SURGICAL: Positive Hysterectomy and Section Social History SMOKING STATUS: Never smoker SECOND HAND EXPOSURE: Yes SUBSTANCE USE: does not use ED Exam Narrative Physical exam: GENERAL APPEARANCE: alert and oriented x 4, well-developed, well-nourished, no acute distress HEENT: Normocephalic, atraumatic; pupils equal, round, reactive to light; EOMI; mucous membranes pink, moist; oropharynx clear NECK: Supple LUNGS: Mild decreased air movement; no wheezes, no rales, no rhonchi HEART: Regular rate, regular rhythm; normal S1, S2; no murmurs EXTREMITIES: atraumatic; no edema NEUROLOGIC: awake; alert and oriented x4; cranial nerves II-XII grossly intact; no focal sensory or motor deficits PSYCHIATRIC: appropriate mood and affect SKIN: warm, dry, normal color; no rashes Course Quality Measures none Orders Category Date Time Status XR chest 2V Stat Exams 04/17/25 11:10 Completed CBC Stat Lab 04/17/25 12:40 Completed CMP [Comprehensive Metabolic Panel] Stat Lab 04/17/25 11:38 Completed COVID-19 Antigen (In-House) Stat Lab 04/17/25 11:31 Completed Albuterol/Ipratr Rt Iva [Duoneb Rt Iva] Med 04/17/25 14:49 Discontinued 3 ml INH X1 ONE Dexamethasone Inj [Decadron Inj] Med 04/17/25 14:52 Discontinued 4 mg PO X1 ONE Doxycycline [Vibramycin] Med 04/17/25 14:52 Discontinued 100 mg PO X1 ONE Vital Signs Vital signs: Vital Signs Temperature 98.6 F 04/17/25 10:42 Pulse Rate 70 04/17/25 10:42 Respiratory Rate 18 04/17/25 10:42 Blood Pressure 149/79 H 04/17/25 10:42 Pulse Oximetry (%) 97 04/17/25 10:42 Oxygen Delivery Method Nasal Cannula 04/17/25 10:42 Oxygen Flow Rate 2 04/17/25 10:42 Upper Respiratory Infection MDM Narrative MDM Narrative:: Nellie Rogers am scribing for and in the presence of Dr. Fuentes. Patient data External records reviewed:: [facility] previous records Clinical information provided by:: patient Social determinants that could affect healthcare access:: none Patient has the following chronic illnesses:: COPD, hypertension, CHF How is presenting disease/condition affected by chronic disease/condition?: exacerbated by Evaluation data The following diagnostics were reviewed and interpreted by me:: lab results and radiology exam(s) Lab and/or radiology exams considered but not ordered:: None Interpretation Summary: Ordering Physician: Wilfrido GOLDEN)Mick NP Date of Service: 04/17/25 Procedure(s): XR chest 2V Accession Number(s): [id number] cc: Wilfrido GOLDEN)Mick NP; Brandon Nation MD; Naveed Song MD~ EXAMINATION: PA lateral chest 2 views TECHNIQUE: Upright PA lateral chest 2 views Date and time: April 17, 2025, 11:21 a.m., comparison 01/24/2025 INDICATIONS: Coughing beginning 2 weeks ago. FINDINGS: Mild bibasilar pneumonia Mild prominence left ventricle Retrocardiac gastric hernia. Mild vascular congestion. Severe osteopenia Increased AP dimension chest Kyphosis dorsal spine secondary to chronic wedging thoracolumbar vertebral bodies IMPRESSION: Mild bibasilar pneumonia Dictated By: Brandon Nation MD Signed By: <Electronically signed by Brandon Nation MD in OV> 04/17/25 1135 Medications / Prescriptions Medications or Prescriptions considered but not ordered:: None Medication administrations:: Medication Administration History Discontinued Medications Albuterol/Ipratropium (Albuterol/Ipratropium (Duoneb) Rt Iva 3 Ml Nebu) 3 ml INH X1 ONE Stop: 04/17/25 14:50 Dexamethasone Sodium Phosphate (Dexamethasone Sod Phos Inj 4 Mg/Ml Vial) 4 mg PO X1 ONE; Protocol Stop: 04/17/25 14:53 Doxycycline Hyclate (Doxycycline 100 Mg Tablet) 100 mg PO X1 ONE Stop: 04/17/25 14:53 See above Consultations Consultation(s) initiated? (list below): No Diagnosis Upper Respiratory Differential Diagnosis: upper respiratory infection, viral infection, bronchitis and influenza Most likely diagnosis given after review of the tests above:: Pneumonia Admission Indicated Admission indicated?: not indicated Admission Request Was there a request for admission?: No Disposition Plan Disposition Plan: Discharge Discharge Attestation Discharge Attestation: The patient and all family members were given an opportunity to ask questions and understood the discharge instructions. Discharge instructions specifically effects, indications for sooner follow up or return to the emergency department, and the expected course of current diagnosis. Patient condition: Stable Discharge Plan Plan Patient Disposition: HOME (Self Care) Prescriptions/Referrals Prescriptions/Med Rec: New doxycycline monohydrate 100 mg capsule 100 mg PO BID Qty: 14 0RF No Action fluticasone propionate [Flovent HFA] 110 mcg/actuation Hfa Aerosol Inhaler 2 puff INHALATION BID aspirin 81 mg Tablet,Delayed Release (Dr/Ec) 81 mg PO QDAY albuterol sulfate 90 mcg/actuation Aerosol Powdr Breath Activated 2 inh INHALATION Q6H metoprolol succinate 100 mg tablet extended release 24 hr 100 mg PO QDAY amlodipine 10 mg tablet 10 mg PO QDAY omeprazole 20 mg capsule,delayed release(DR/EC) 20 mg PO QDAY ipratropium-albuterol 0.5 mg-3 mg(2.5 mg base)/3 mL solution for nebulization 3 ml inhalation Q6H PRN (Reason: shortness of breath or wheezing) Qty: 90 0RF albuterol sulfate 1.25 mg/3 mL solution for nebulization 1.25 mg inhalation QID PRN (Reason: shortness of breath or wheezing) Qty: 90 0RF ketorolac 0.5 % drops 1 drp OPHTHALMIC (EYE) BID Trelegy Ellipta 200-62.5-25 mcg Blister With Device 1 inh INHALATION QDAY meclizine 50 mg tablet 50 mg PO QDAY PRN (Reason: motion sickness) Qty: 10 0RF dexlansoprazole 60 mg capsule,biphase delayed releas 60 mg PO DAILY furosemide [Lasix] 20 mg tablet 40 mg PO QAM azithromycin 250 mg tablet 250 mg PO QDAY Qty: 3 0RF metolazone 2.5 mg tablet 2.5 mg PO QDAY MDD 1 Qty: 7 0RF levofloxacin 250 mg tablet 250 mg PO Q24H MDD 1 Qty: 7 0RF Referrals: Naveed Song MD [Primary Care Provider, Family Practice] - In 1 week Problem List Clinical Impression: Pneumonia Patient/Caregiver Discharge Instructions Education Materials: ED Pneumonia (Adult) Print Language: Vietnamese Stand Alone Forms: [employer] Award Info., Patient Portal Info Letter
[2025-04-17] MEDS: ALBUTEROL/IPRATROPIUM (Duoneb) RT SOL 3 ML NEBU INH (15:18)
[2025-04-17 15:20] VITALS: PULSE 67; RESP 18; O2SAT 99
--- NOTE | 2025-04-17 15:33 | PC.NURSE ---
Pt to CT in wheelchair at this time
[2025-04-17] MEDS: DOXYCYCLINE 100 MG TABLET PO (15:40)
[2025-04-17] MEDS: DEXAMETHASONE SOD PHOS INJ 4 MG/ML VIAL PO (15:40)
[2025-04-17 15:43] VITALS: BP 153/64; PULSE 100; RESP 17; TEMP 36.8; O2SAT 100
== END 2025-04-17 15:56 | disposition home or self-care (01) ==
PROVIDERS: Nurse Practitioner Primary Care; Emergency Provider Emergency Medicine; PCP Family Medicine
DX: J44.0 Chronic obstructive pulmonary disease with (acute) lower respiratory infection (principal); J18.9 Pneumonia, unspecified organism; Z79.51 Long term (current) use of inhaled steroids
CPT/HCPCS: 36415; 71046; 80053; 85025; 87811; 94640; 99283; A9270; J1100